=== PATIENT | male | born 1975 | race Caucasian/White ===

== ENCOUNTER 2023-03-15 19:00 | Inpatient (IN) | payer BC, SELFPAY ==
--- NOTE | ~2023-03-15 | US_ITS ---
EXAMINATION: US venous doppler UE DATE: 03/16/2023 17:49 INDICATION: Left upper limb pain. TECHNIQUE: Grayscale ultrasound images without and with compression and Doppler ultrasound images of the left upper extremity veins were obtained. COMPARISON: ultrasound 03/16/23 FINDINGS: The visualized portions of the left internal jugular vein, subclavian vein, axillary vein, brachial v eins, basilic vein, cephalic vein, and radial vein are patent. There is thrombus in left ulnar vein. IMPRESSION: 1. Deep vein thrombosis involving left ulnar vein. Reviewed, dictated and finalized at location E.
--- NOTE | ~2023-03-15 | MR_ITS ---
EXAMINATION: MR elbow LT wo/w con DATE: 03/21/2023 12:42 INDICATION: Deep space infection of the left upper extremity. TECHNIQUE: Magnetic resonance imaging (MRI) of the left upper extremity centered at the left elbow to include the distal two thirds of the upper arm and proximal two thirds of the forearm was performed without and with 14 mL Multihance intravenous contrast. Sequences included axial, sagittal and foreman l T1-weighted FSE and fluid sensitive FSE STIR, axial T1-weighted FS FSE and post contrast axial, sag ittal and coronal T1-weighted FS FSE were also obtained. COMPARISON: CT dated 03/19/2023 FINDINGS: There is diffuse subcutaneous edema throughout the visualized forearm, rule out the elbow and along t he medial aspect of the more proximal upper arm. Additional prominent deeper muscular edema and non m asslike enhancement in the deeper fat centered about the brachial neurovascular bundle and in the und erlying brachialis muscle belly, the latter consistent with myositis. There is additional mild likely reactive edema without abnormal enhancement in the musculature of the proximal aspect of the flexor compartment. No discrete abscess. There is no evident nonenhancing myonecrosis. Elbow joint spaces ap pear normal with no joint effusion. Bone marrow signal is normal throughout. No osteomyelitis or othe r acute osseous abnormality. IMPRESSION: 1. Prominent diffuse centimeters subcutaneous edema and non masslike enhancement in the left upper ar m and forearm cyst with cellulitis as well as in the deeper tissues centered along the brachial neuro vascular bundle of the distal upper arm and antecubital fossa. No abscess. 2. Edema and non masslike enhancement in the underlying brachialis muscle belly consistent with myosi tis. With no evident nonenhancing myonecrosis. 3. No evident low signal intensity foci of soft tissue gas or evident soft tissue gas on the more sen sitive prior CT to suggest necrotizing fasciitis however this is a clinical diagnosis and can not be excluded based solely on imaging. Reviewed, dictated and finalized at location A. IMPRESSION: 1. Prominent diffuse centimeters subcutaneous edema and non masslike enhancemen t in the left upper arm and forearm cyst with cellulitis as well as in the deep er tissues centered along the brachial neurovascular bundle of the distal upper arm and antecubital fossa. No abscess. 2. Edema and non masslike enhancement in the underlying brachialis muscle belly consistent with myositis. With no evident nonenhancing myonecrosis. 3. No evident low signal intensity foci of soft tissue gas or evident soft tiss ue gas on the more sensitive prior CT to suggest necrotizing fasciitis however this is a clinical diagnosis and can not be excluded based solely on imaging.
--- NOTE | ~2023-03-15 | CT_ITS ---
CT OF left upper extremity EXAMINATION: CT UE LT wo con DATE: 03/19/2023 09:56 INDICATION: Rule out compartment syndrome, abscess. TECHNIQUE: Computed tomography (CT) of the was performed without intravenous contrast. Automated expo sure control and iterative reconstruction technique were employed. The dose-length product was 1074.4 2 mGy-cm. COMPARISON: None FINDINGS: Intact osseous structures. No fracture or erosion. Prominent lymph nodes in the antecubital fossa and axilla. Extensive subcutaneous edema involving the entire upper extremity. Edematous/inflammatory ch brian appears to extend into deep fascial layers. Fluid/inflammatory change surrounding the neurovascu lar bundle, best seen at the antecubital fossa, where there is also likely venous dilation that would be typical of venous thrombosis. IMPRESSION: No definite abscess noting that this determination is limited by CT, and even more so without contras t. Consider MRI without and with contrast. Compartment syndrome cannot be reliably assessed or excluded by imaging. Possible cellulitis, thrombophlebitis and deep space infection. Consider necrotizing fasciitis in the differential given deep space involvement. Reviewed, dictated and finalized at location K. IMPRESSION: No definite abscess noting that this determination is limited by CT, and even m ore so without contrast. Consider MRI without and with contrast. Compartment syndrome cannot be reliably assessed or excluded by imaging. Possible cellulitis, thrombophlebitis and deep space infection. Consider necrot izing fasciitis in the differential given deep space involvement.
--- NOTE | ~2023-03-15 | XR_ITS ---
EXAMINATION: XR chest 2V DATE: 03/15/2023 20:15 INDICATION: Chest pain. TECHNIQUE: Frontal and lateral views of the chest were obtained on 3 radiographs. COMPARISON: Chest 2 views 08/10/2013 FINDINGS: A calcified right lung nodule is consistent with old granulomatous disease. There is mild a telectasis in right lower lung zone. No pleural effusion or pneumothorax. Cardiomegaly is noted. IMPRESSION: 1. Mild atelectasis in right lower lung zone. 2. Cardiomegaly. Reviewed, dictated and finalized at location E.
--- NOTE | ~2023-03-15 | US_ITS ---
EXAMINATION: US soft tissue UE LT DATE: 03/16/2023 15:04 INDICATION: Soft tissue swelling, pain and erythema at the left antecubital fossa with drainage at th e site of a prior IV catheter. TECHNIQUE: Multiple grayscale and Doppler ultrasound images of the region of concern at the left ante cubital fossa and more proximal upper arm were obtained. COMPARISON: None FINDINGS: There is cellulitis with skin thickening and subcutaneous edema at the erythematous region of concern . In the region of cellulitis is a linear hypoechoic draining sinus tract and/or catheter tract exten ding from the skin surface deep to an ill-defined approximately 3 x 3 x 2.5 cm heterogeneously hypoec hoic region of likely edema and potentially phlegmonous change at the antecubital fossa. There is pro minent hyperemia on color Doppler within the hypoechoic region. No organized-appearing drainable absc ess identified. The region of inflammation surrounds the distal left brachial artery and veins. The b rachial artery remains patent with pulsatile vascular flow evident on color Doppler. This could be as sociated brachial veins appear filled with hypoechoic likely thrombus with no discernible internal fl ow on color Doppler. There are several mildly prominent likely reactive lymph nodes in the more proxi mal upper arm along the brachial artery. IMPRESSION: 1. Localized thrombophlebitis with thrombosis of the distal brachial veins at the left antecubital fo ssa deep to a likely draining sinus tract and/or catheters tract. There is a small surrounding region of likely phlegmonous change and more superficial cellulitis but no drainable abscess at this locati on. Reviewed, dictated and finalized at location A. IMPRESSION: 1. Localized thrombophlebitis with thrombosis of the distal brachial veins at t he left antecubital fossa deep to a likely draining sinus tract and/or catheter s tract. There is a small surrounding region of likely phlegmonous change and m ore superficial cellulitis but no drainable abscess at this location.
--- NOTE | ~2023-03-15 | MR_ITS ---
MRI of the thoracic spine Clinical History: Epidural abscess Technique: Axial T2-weighted and gradient images, and sagittal T1-weighted, T2-weighted, and STIR arlene ges were acquired. Following intravenous administration of 14 cc MultiHance gadolinium, T1-weighted f at-sat imaging was performed in the axial and sagittal planes. Findings: There is no fracture or subluxation of the thoracic spine. Vertebral bodies maintain normal height and alignment. No bone marrow signal abnormality seen. No abnormal disc signal seen. No disc bulge or herniation seen at any thoracic level. There is mild canal stenosis from C3 through C9, largely related to mildly prominent posterior epidural fat. No franky cord compression evident. No other epidural mass or collection identified. No abnormal signal seen in the spinal cord. No abnormal postcontrast enhancement identified. Paravert ebral soft tissues are otherwise unremarkable. Impression: No epidural abscess. Mild canal stenosis from C3 through C9, largely related to prominent posterior epidural fat. No franky cord compression. No disc bulge or herniation. Reviewed, dictated and finalized at [facility]. Impression: No epidural abscess. Mild canal stenosis from C3 through C9, largely related to prominent posterior epidural fat. No franky cord compression. No disc bulge or herniation.
--- NOTE | ~2023-03-15 | CT_ITS ---
EXAMINATION: CTA chest PE protocol DATE: 03/15/2023 21:37 INDICATION: Chest pain. TECHNIQUE: Computed tomography angiography (CTA) of the chest was performed with 100 mL Omnipaque-350 intravenous contrast timed to evaluate the pulmonary arteries. Coronal maximum intensity projection 3D-reconstructions were created by the technologist. Automated exposure control and iterative reconst ruction technique were employed. The dose-length product was 252.62 mGy-cm. COMPARISON: Chest CT 05/28/2012, CT abdomen and pelvis 08/10/2013 FINDINGS: There is a bleb at right lung apex. There is mild scarring in right upper lobe. There is mi ld atelectasis bilaterally. A calcified right lung nodule and calcified right hilar lymph nodes are c onsistent with old granulomatous disease. No pleural effusion. Cardiomegaly is noted. No pericardial effusion. There is no pulmonary embolus. Calcifications in the liver and spleen are consistent with o ld granulomatous disease. The bones are unremarkable. IMPRESSION: 1. No pulmonary embolus. 2. Cardiomegaly. Reviewed, dictated and finalized at location E.
[2023-03-15 18:59] VITALS: BP 147/88; PULSE 113; RESP 14; TEMP 37.6; O2SAT 97
[2023-03-15 19:26] LABS: Basophils Percent Auto 0.4 % (0.2-1.2); Eosinophils Percent Auto 0.3 % (0-4.4); Hematocrit 41.2 % (42.0-52.0); Hemoglobin 13.8 g/dL (14.0-18.0); Immature Granulocyte Absolute 0.06 K/mm3 (0.00-0.031); Immature Granulocyte Percent A 0.8 % (0-0.5); Mean Corpuscular HGB Conc 33.5 g/dl (32-36); Mean Corpuscular Hemoglobin 27.1 pg (26-34); Mean Corpuscular Volume 80.9 fl (80-100); Mean Platelet Volume 9.7 fl (7.4-10.4); Monocytes Percent Auto 12.7 % (2.6-8.5); Neutrophils Percent Auto 76.8 % (45.5-73.1); Platelet Count Result 255 k/mm3 (150-375); Red Blood Count 5.09 M/mm3 (4.6-6.20); Red Cell Distribution Width 14.3 % (11.5-14.5); White Blood Count 7.8 K/mm3 (4.5-10.0)
[2023-03-15 19:29] LABS: Glucose Point of Care > 500 mg/dl (65-105)
--- NOTE | 2023-03-15 19:41 | ECG_ITS ---
Measurements Intervals [place] Rate: 110 P: 77 MA: 174 QRS: -66 QRSD: 111 T: 91 QT: 329 QTc: 446 Interpretive Statements SINUS TACHYCARDIA LEFT ATRIAL ENLARGEMENT [-0.15mV P WAVE IN V1/V2] LEFT ANTERIOR FASCICULAR BLOCK [QRS AXIS <= -45, QR IN I, RS IN II] LEFT VENTRICULAR HYPERTROPHY AND ST-T CHANGE [VOLTAGE CRITERIA PLUS ST/T ABNORMALITY] ABNORMAL ECG NO PREVIOUS ECG AVAILABLE FOR COMPARISON Electronically Signed On 03-16-2023 8:56:07 CDT by Juan José Duenas M.D.
--- NOTE | 2023-03-15 19:42 | ED.GENADULT ---
HPI - General Adult General Chief complaint: Unspecified Stated complaint: AMS, ARM INFECTION Time Seen by Provider: 03/15/23 19:29 History of Present Illness HPI narrative: Patient is complaining of an infection in his left arm that is causing pain there as well as throughout his entire body. It is reported that he was seen at [place] 1 week ago for DKA and left AMA. Patient states this pain has been going on for 2 days. He noticed thick purulent discharge from the wound in the antecubital fossa of his left arm earlier. 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 Says he felt warm earlier today but no antipyretics yet. Self-reports heart failure with EF 25% (previously worse and temporarily had worn LifeVest but regained some function). He is currently having some chest pain. He has also had a non productive cough. Denies IVDU. States he has a history of DVT for which he takes Elliquis but that his last dose was taken when he was at the hospital 2 days ago. 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 Patient denies allergies to me. Related Data Home Medications Medication Instructions Recorded Confirmed atorvastatin 10 mg tablet 10 mg PO DAILY 03/16/23 03/16/23 bupropion HCl 150 mg tablet,12 hr 150 mg PO DAILY 03/16/23 03/16/23 sustained-release carvedilol 3.125 mg tablet 3.125 mg PO BID 03/16/23 03/16/23 gabapentin 300 mg capsule 300 mg PO TID PRN nerve pain 03/16/23 03/16/23 hydroxyzine HCl 25 mg PO TID PRN Anxiety 03/16/23 03/16/23 insulin glargine 100 unit/mL (3 40 unit subcut DAILY 03/16/23 03/16/23 mL) subcutaneous pen (Lantus Solostar U-100 Insulin) insulin lispro 100 unit/mL 10 unit subcut TIDWM 03/16/23 03/16/23 subcutaneous solution (Humalog U-100 Insulin) losartan 25 mg tablet 25 mg PO DAILY 03/16/23 03/16/23 naltrexone 50 mg tablet 50 mg PO DAILY 03/16/23 03/16/23 pantoprazole 40 mg tablet,delayed 40 mg PO DAILY 03/16/23 03/16/23 release trazodone 50 mg tablet 50 mg PO HS 03/16/23 03/16/23 Allergies Allergy/AdvReac Type Severity Reaction Status Date / Time codeine Allergy Intermediate Unknown Verified 03/16/23 03:17 gabapentin Allergy Unknown Verified 03/16/23 03:17 [facility] Past Medical History Medical History (Updated 03/18/23 @ 00:51 by Carlita Apple MD) Amphetamine abuse CVA (cerebral vascular accident) (~2021) Diabetic neuropathy Essential hypertension History of cocaine use Hypothyroidism Migraines MRSA cellulitis Nonadherence to medical treatment Systolic heart failure Thrombus in heart chamber Uncontrolled type 1 diabetes mellitus with hyperglycemia Surgical History Surgical History (Updated 03/16/23 @ 03:37 by Ele Saenz DO) History of facial surgery Reconstructive surgery to the face and jaw Status post open reduction with internal fixation of fracture Right 5th toe Family History Family History Mother Diabetes mellitus Hypertension COPD (chronic obstructive pulmonary disease) Father Kidney stones Hypertension Sibling Diabetes mellitus Social History Social History (Updated 03/16/23 @ 07:50 by Ele Saenz DO) Social History: He is and has a believe 2 children. Patient has a history of both methamphetamine and cocaine abuse in the past. He also uses marijuana. He reports that he has been clean of illicit substance use since October of 2022 but his methamphetamine screen was positive 03/16/2023. He is living with his aunt. He quit smoking November of 2022. He denies any significant alcohol use. He reports that he previously was incarcerated for 24 years. He thinks that if he had never been incarcerated that he would probably already be from his drug addiction Code status: Full code Surrogate decision maker: Riri (spouse) Smoking packs per day: 1 Smok
[2023-03-15 19:44] LABS: Alanine Aminotransferase 24 U/L (6-50); Albumin Level 3.6 g/dL (3.5-5.1); Alkaline Phosphatase 114 U/L (38-126); Anion Gap 10 mmol/L (8-16); Aspartate Amino Transferase 24 U/L (17-59); Bilirubin,Total 0.8 mg/dL (0.2-1.3); Blood Urea Nitrogen 27 mg/dL (9-20); Calcium 8.5 mg/dL (8.4-10.2); Carbon Dioxide 24 mmol/L (22-30); Chloride 89 mmol/L (98-107); Estimated CRCL calculation 58 ml/min; Estimated Glomerular Filt Rate 55; Glucose 565 mg/dL (65-110); Magnesium 1.8 mg/dL (1.6-2.3); Phosphorus 2.4 mg/dL (2.5-4.5); Potassium 4.8 mmol/L (3.4-5.0); Sodium 123 mmol/L (137-145)
[2023-03-15 19:46] VITALS: PULSE 110
[2023-03-15 19:47] LABS: Beta-Hydroxybutyrate/Acetoacetate 0.11 mmol/L (0.02-0.27)
[2023-03-15] MEDS: MORPHINE SULFATE (*CRX) 4 MG/ML INJ IV PUSH (19:48)
[2023-03-15] MEDS: ACETAMINOPHEN 500 MG TABLET 1000 MG PO (19:48)
[2023-03-15 20:02] LABS: D Dimer 1.01 ug/mL (<0.48)
[2023-03-15 20:04] LABS: Appearance Urine Clear (Clear); Bacteria Urine None Seen /hpf; Bilirubin Urine Negative (Negative); Blood Urine 2+ (Negative); Color Urine Yellow (Yellow); Glucose Urine UA 3+ mg/dL (Negative); Ketones Urine Negative (Negative); Leukocyte Esterase Ur Negative LEU/UL (Negative); Need Manual Microscopic Reviewed; Nitrate Urine Negative (Negative); Non Pathogenic Casts 0-2; Protein Urine 3+ mg/dL (Negative); Specific Grav Ur 1.032 (1.001-1.035); Squamous Epithelial Cell Urine None seen /hpf (Few); WBC Urine 0-5 /hpf; pH Urine 5.5 (5.0-9.0)
[2023-03-15 20:06] LABS: Add Urine Microscopic? YES
[2023-03-15 20:14] LABS: Troponin I 0.105 ng/mL (0.000-0.034)
[2023-03-15] MEDS: SODIUM CHLORIDE 0.9% IV 500 ML 999 ML IV CONT ×2 (20:17→21:49)
[2023-03-15] MEDS: POTASSIUM PHOS/SODIUM PHOS 250 MG TABLET PO (20:18)
[2023-03-15 21:22] VITALS: BP 113/61; PULSE 98; RESP 22; O2SAT 98
[2023-03-15] MEDS: INSULIN ASPART (*BKC) 100 UNITS/ML 10 UNITS SUB-Q (22:18)
[2023-03-15 22:25] LABS: Glucose Point of Care 364 mg/dl (65-105)
[2023-03-15 22:35] LABS: Troponin I 0.108 ng/mL (0.000-0.034)
--- NOTE | 2023-03-15 23:12 | ECG_ITS ---
Measurements Intervals [place] Rate: 98 P: 65 MO: 172 QRS: -59 QRSD: 112 T: 76 QT: 341 QTc: 437 Interpretive Statements SINUS RHYTHM LEFT ATRIAL ENLARGEMENT [-0.15mV P WAVE IN V1/V2] LEFT ANTERIOR FASCICULAR BLOCK [QRS AXIS <= -45, QR IN I, RS IN II] POSSIBLE LEFT VENTRICULAR HYPERTROPHY [VOLTAGE CRITERIA PLUS LAE OR QRS WIDENING] NONSPECIFIC T-WAVE ABNORMALITY ABNORMAL ECG COMPARED TO ECG 03/15/2023 20:03:53 HEART RATE HAS DECREASED Electronically Signed On 03-16-2023 18:25:04 CDT by Juan José Duenas M.D.
[2023-03-15 23:45] VITALS: BP 148/89; PULSE 101; RESP 14; O2SAT 99
[2023-03-16] VITALS (13 sets, daily range): BP systolic 113–147; BP diastolic 64–92; PULSE 85–120; RESP 15–21; TEMP 36.4–37.8; O2SAT 94–99; BMI 24.5
--- NOTE | 2023-03-16 | ECHO_ITS ---
Patient Info Name: Eleuterio Galvan Age: 47 years : 1975 Gender: Male Ht: 68 in Wt: 160 lbs BSA: 1.87 m2 HR: 101 bpm BP: 135 / 76 mmHg Heart Rhythm: Sinus Rhythm, Tachycardia Technical Quality: Fair Exam Date: 03/16/2023 10:44 AM Exam Location: [facility] Pulmonary Exam Room: 317 Patient Status: Inpatient Admit Date: 03/16/2023 Staff Ordering Physician: Glenis Borges APRN Systems Specialist: Pricila Del Cid RDCS Attending Provider: Ele Saenz DO Referring Physician: Katerina CROWDER; Exam Type: CA echo doppler color flow Study Info Indications - HX/O CM IVDU THROMBUS Complete two-dimensional, color flow and Doppler transthoracic echocardiogram is performed. Summary 1. Complete two-dimensional, color flow and Doppler transthoracic echocardiogram is performed. 2. Left ventricular chamber dimension is moderately enlarged. False tendon noted in LV. 3. Left ventricular systolic function is severely reduced, estimated at 25-30%. Heavy trabeculation in the left ventricle. Consider left ventricular noncompaction. Consider cardiac MRI if clinically indicated. 4. There is mildly increased left ventricular wall thickness. 5. The left ventricular diastolic function is normal. 6. Global longitudinal strain is severely elevated at -7 %. 7. The aortic valve is quadricuspid with mild sclerosis. 8. There is mild aortic valve regurgitation. 9. There is no aortic valve stenosis. Left Ventricle Left ventricular chamber dimension is moderately enlarged. False tendon noted in LV. Left ventricular systolic function is severely reduced, estimated at 25-30%. Heavy trabeculation in the left ventricle. Consider left ventricular noncompaction. Consider cardiac MRI if clinically indicated. There is mildly increased left ventricular wall thickness. The left ventricular diastolic function is normal. Global longitudinal strain is severely elevated at -7 %. Right Ventricle Right ventricular chamber dimension is normal. Right ventricular systolic function is normal. Prominent moderator band. Left Atria Left atrial chamber dimension is mildly enlarged. Right Atria Right atrial chamber dimension is normal. Aortic Valve There is no aortic valve stenosis. There is mild aortic valve regurgitation. The aortic valve is quadricuspid with mild sclerosis. Pulmonic Valve The pulmonic valve is normal. There is mild pulmonic regurgitation. Mitral Valve The mitral valve has thickened leaflets. There is no mitral valve regurgitation. Tricuspid Valve The tricuspid valve leaflets are normal. There is trace tricuspid valve regurgitation. No pulmonary hypertension, estimated pulmonary arterial systolic pressure is 30 mmHg. Pericardium/Pleural The pericardium appears normal. There is trivial pericardial effusion. Inferior Vena Cava Normal inferior vena cava with <50% collapse upon inspiration consistent with elevated right atrial pressure, 10 mmHg. Aorta The aortic root size at the sinus of Valsalva is normal. Left Ventricular Outflow Tract Name Value Normal LVOT 2D LVOT Diameter 2.0 cm LVOT Doppler LVOT Peak Velocity 130 cm/s LVOT Peak Gradient 7 mmHg
[2023-03-16 01:10] LABS: Amphetamine Screen Urine Positive (Negative); Barbiturate Screen Urine Negative (Negative); Benzodiazepines Screen Urine Positive (Negative); Cannabinoid Screen Urine Negative (Negative); Cocaine Screen Urine Negative (Negative); Methadone Screen Urine Negative (Negative); Opiate Screen Urine Negative (Negative); Phencyclidine Screen Urine Negative (Negative)
--- NOTE | 2023-03-16 01:23 | PC.NURSE ---
Patient is in a great deal of pain crying and moaning in bed. Notified Dr. Apple who verbally ordered 4mg Morphine IVP.
[2023-03-16] MEDS: MORPHINE SULFATE (*CRX) 4 MG/ML INJ IV PUSH (01:27)
[2023-03-16] MEDS: SODIUM CHLORIDE 0.9% IV 1,000 ML 70 ML IV CONT (01:28)
--- NOTE | 2023-03-16 02:44 | ADMGEN ---
This patient, Eleuterio Galvan, was admitted to [facility] Surg Room 317-02. Patient/family oriented to hospital policies and general routines including ID bracelet, bed and alarms, visiting hours, pain management, procedures, bathroom and other care routines, personal items, smoking policy, room service/diet, and visiting hours. Information on how to activate the Rapid Response Team has been discussed. Patient/Family are encouraged to report perceived risks to care and to ask questions if they do not understand what they are told or what they should do.
--- NOTE | 2023-03-16 03:25 | PM.IMHP ---
H&P: HPI History of Present Illness Date/Time: 03/16/23 03:25 Chief Complaint: Arm infection Narrative: 47-year-old male with a past medical history of systolic congestive heart failure/severe cardiomyopathy, uncontrolled diabetes mellitus, anxiety, chronic pain and amphetamine abuse who presented to the ER from home with complaints of an arm infection. The patient reports that he was just diet [facility] 2 days ago for DKA. He decided to leave the hospital against medical advice when he started developing an infection in his left forearm. He newly was getting an infection at the IV site and stated that he did not want to stay there and let the infection go to his eye like it did the last time. He states that he has blindness left eye due to the infection going to his left eye last year. Although his reasoning does not make since he chose to leave the hospital. He returned to our hospital today because he was hurting all over. He had been having subjective fevers and chills. When he arrived to the ER he had a low-grade temperature and when he arrived to the medical floor temperature was 100.1?. He denies any nausea or vomiting he reports a good appetite. He does have difficulty with diabetic gastroparesis. He reports that he has a brittle diabetic and that is glucoses jump up and down. He did take his long-acting insulin but despite taking his long-acting insulin is still having high glucoses. He did not take his short-acting insulin because he was not eating due to his generalized pain. He reports that he has been having pain up into his arm and into his left shoulder. He reports that the pain is severe. He does not want to move his arm at all. He has had some swelling of the arm as well. He reports he had a prior MRSA infection in the right arm from a prior IV site last year. The patient does admit that he does have a history of drug abuse. He adamantly denies intentionally using methamphetamines recently. He admits he did smoke a joint with a friend couple of days ago and he thinks that that may have been laced with methamphetamines. He states that he has been on naltrexone and Wellbutrin for 3 months and is been trying to stay clean besides smoking weed. He is currently living with his aunt. He has a in the process of applying for disability because he has cardiomyopathy from his prior drug use. He reports that his ejection fraction victor is been as low as 8% last year in July he did get is ejection fraction up to 40% 1 time but then again became noncompliant with his care. He reports for the last 3 months he has been taking his medications as directed in his EF is improved up to 20-25%. 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 Which was treated at another hospital several months ago. He has not had any recent syncopal episodes. He denies any shortness of breath. He quit smoking tobacco 3 months ago. Review of Systems Review of Systems: 12 systems were reviewed with pertinent positives and negatives per HPI. Except as documented in the HPI, all other systems were reviewed and are negative. [facility] Past Medical History Medical History (Updated 03/16/23 @ 08:08 by Ele Saenz DO) Amphetamine abuse CVA (cerebral vascular accident) (~2021) Diabetic neuropathy Essential hypertension History of cocaine use Hypothyroidism Migraines MRSA cellulitis Nonadherence to medical treatment Systolic heart failure Thrombus in heart chamber Uncontrolled type 1 diabetes mellitus with hyperglycemia Surgical History Surgical History (Updated 03/16/23 @ 03:37 by Ele Saenz DO) History of facial surgery Reconstructive surgery to the face and jaw Status post open reduction with internal fixation of fracture Right 5th toe Family History Family History Mother
--- NOTE | 2023-03-16 03:38 | PC.NURSE ---
This RN completed pt admission. Admission questions answered based on patient response. Pt stated he hasn't used any substances since 10/2022, tox report was positive.
[2023-03-16 03:56] LABS: Estimated CRCL calculation 73 ml/min; Estimated Glomerular Filt Rate > 60
[2023-03-16] MEDS: HYDROcodone/acetaminophen (*CRX) 5-325 MG TABLET 1 TAB PO ×3 (05:20→17:58)
[2023-03-16 05:58] LABS: Basophils Absolute Auto 0.1 K/mm3 (0.0-0.1); Basophils Percent Auto 0.7 % (0.2-1.2); Eosinophils Absolute Auto 0.1 K/mm3 (0-0.3); Eosinophils Percent Auto 0.8 % (0-4.4); Hemoglobin 14.8 g/dL (14.0-18.0); Immature Granulocyte Absolute 0.04 K/mm3 (0.00-0.031); Immature Granulocyte Percent A 0.4 % (0-0.5); Lymphocytes Absolute Auto 1.12 K/mm3 (0.9-3.2); Lymphocytes Percent Auto 12.2 % (18.3-44.2); Mean Corpuscular HGB Conc 32.2 g/dl (32-36); Mean Corpuscular Hemoglobin 26.8 pg (26-34); Mean Corpuscular Volume 83.2 fl (80-100); Monocytes Absolute Auto 1.1 K/mm3 (0.1-0.6); Monocytes Percent Auto 12.3 % (2.6-8.5); Neutrophils Absolute Auto 6.8 K/mm3 (1.3-6.7); Neutrophils Percent Auto 73.6 % (45.5-73.1); Platelet Count Result 286 k/mm3 (150-375); Red Blood Count 5.53 M/mm3 (4.6-6.20); Red Cell Distribution Width 14.5 % (11.5-14.5); White Blood Count 9.2 K/mm3 (4.5-10.0)
[2023-03-16 06:06] LABS: Anion Gap 8 mmol/L (8-16); Blood Urea Nitrogen 23 mg/dL (9-20); Calcium 8.6 mg/dL (8.4-10.2); Carbon Dioxide 26 mmol/L (22-30); Chloride 96 mmol/L (98-107); Estimated CRCL calculation 73 ml/min; Estimated Glomerular Filt Rate > 60; Glucose 73 mg/dL (65-110); Potassium 3.5 mmol/L (3.4-5.0); Sodium 130 mmol/L (137-145)
[2023-03-16 06:24] LABS: Troponin I 0.106 ng/mL (0.000-0.034)
[2023-03-16 06:35] LABS: Lactic Acid Reflex 1.9 mmol/L (0.7-2.0)
[2023-03-16 07:52] LABS: Glucose Point of Care 71 mg/dl (65-105)
--- NOTE | 2023-03-16 08:18 | PM.IMPN ---
Progress Note: A&P Assessment and Plan (1) Sepsis: Qualifiers: Sepsis acute organ dysfunction status: without acute organ dysfunction Sepsis type: sepsis due to unspecified organism Qualified Code(s): A41.9 - Sepsis, unspecified organism Code(s): A41.9 - Sepsis, unspecified organism Status: Acute Assessment and Plan: Tachycardia and tachypnea in setting of cellulitis broad spectrum therapy with vanco given history of MRSA MRSA nasal swab pending Blood cultures pending Currently not draining so unable to collect culture left upper extremity ultrasound ordered r/o abscess development (2) Cellulitis: Qualifiers: Laterality: left Site of cellulitis: extremity Site of cellulitis of extremity: upper extremity Qualified Code(s): L03.114 - Cellulitis of left upper limb Code(s): L03.90 - Cellulitis, unspecified Status: Acute Assessment and Plan: see above (3) Elevated troponin: Code(s): R79.89 - Other specified abnormal findings of blood chemistry Status: Acute Assessment and Plan: Troponin on admission was 0.108--->0.106 this morning suspect related to chronic cardiomyopathy on tele EKG with left atrial enlargement as well as LV hypertrophy and ST-T change 03/16 did complain of chest pain which he says is more in his mid-left back. EKG unchanged. Troponin continues to decline. (4) Systolic heart failure: Qualifiers: Heart failure chronicity: chronic Qualified Code(s): I50.22 - Chronic systolic (congestive) heart failure Code(s): I50.20 - Unspecified systolic (congestive) heart failure Status: Acute Assessment and Plan: Drug induced cardiomyopathy resuming home coreg and losartan I&Os and daily weights last echo? 20-25% EF per patient ECHO completed here 03/16 (5) Uncontrolled type 1 diabetes mellitus with hyperglycemia: Code(s): E10.65 - Type 1 diabetes mellitus with hyperglycemia Status: Acute Assessment and Plan: Typically on 10 units lispro with meals and Lantus 40 units daily was only taking lantus at home due to low oral intake Blood glucose was > 500 on arrival Received 10 units of novolog in the ED at 2206 Blood glucose 71 this morning before breakfast. Hold 10 units of novolog. Continue with high dose SSI and hypoglycemia protocol DM diet (6) Nonadherence to medical treatment: Code(s): Z91.199 - Patient's noncompliance with other medical treatment and regimen due to unspecified reason Status: Acute Assessment and Plan: History of AMA most recently at [place] this last week (7) Thrombus in heart chamber: Code(s): I51.3 - Intracardiac thrombosis, not elsewhere classified Status: Acute Assessment and Plan: Patient reports thrombus and is on Eliquis restarted Eliquis 5 mg PO BID (8) Amphetamine abuse: Code(s): F15.10 - Other stimulant abuse, uncomplicated Status: Acute Assessment and Plan: Patient states he has taken Wellbutrin and naltrexone to help him quit using methamphetamines.? Patient is receiving [place] currently.? Naltrexone is on hold.? The importance of adherence to his medical therapy and long-term consequences was discussed with the patient in detail. Plan Feeding:diabetic diet Analgesia:norco with morphine for severe pain Thromboembolic prophylaxis: SCDs and eliquis Ulcer prophylaxis: protonix Glycemic control: SSI with Lantus 40 units daily and hypoglycemia protocol Bowel regimen: na Lines: PIV Antibiotics:IV vanco Disposition: Home Await results from ultrasound and thoracic spine MRI Subjective Date/time seen: 03/16/23 08:18 Interval history: HPI obtained from chart, 47-year-old male with a past medical history of systolic congestive heart failure/severe cardiomyopathy, uncontrolled diabetes mellitus, anxiety, chronic pain and amphetamine abus
[2023-03-16] MEDS: buPROPion HCL SR (12 HR) 150 MG TAB PO (09:03)
[2023-03-16] MEDS: ATORVASTATIN 10 MG TABLET PO (09:03)
[2023-03-16] MEDS: LOSARTAN POTASSIUM 25 MG TABLET PO (09:03)
[2023-03-16] MEDS: APIXABAN 5 MG TABLET PO ×2 (09:03→20:44)
[2023-03-16] MEDS: NYSTATIN 100,000 UNITS/ML SUSP 5 ML ORAL.SUSP PO ×3 (09:03→20:45)
[2023-03-16] MEDS: carvediloL 3.125 MG TABLET PO ×2 (09:03→20:44)
[2023-03-16] MEDS: PANTOPRAZOLE 40 MG TABLET PO (09:03)
[2023-03-16] MEDS: INSULIN GLARGINE (*BKC) 100 UNITS/ML 40 UNITS SUB-Q (09:08)
--- NOTE | 2023-03-16 09:14 | ECG_ITS ---
Measurements Intervals [place] Rate: 108 P: 54 NV: 132 QRS: -53 QRSD: 109 T: 80 QT: 331 QTc: 445 Interpretive Statements SINUS TACHYCARDIA LEFT ATRIAL ENLARGEMENT [-0.15mV P WAVE IN V1/V2] LEFT ANTERIOR FASCICULAR BLOCK [QRS AXIS <= -45, QR IN I, RS IN II] NONSPECIFIC T-WAVE ABNORMALITY ABNORMAL ECG COMPARED TO ECG 03/15/2023 23:28:49 SINUS TACHYCARDIA NOW PRESENT Electronically Signed On 03-16-2023 18:28:10 CDT by Juan José Duenas M.D.
[2023-03-16 10:11] LABS: Troponin I 0.093 ng/mL (0.000-0.034)
[2023-03-16 11:25] LABS: Glucose Point of Care 285 mg/dl (65-105)
[2023-03-16] MEDS: INSULIN ASPART (*BKC) 100 UNITS/ML SUB-Q ×3 (11:33→20:52)
[2023-03-16] MEDS: INSULIN ASPART (*BKC) 100 UNITS/ML 10 UNITS SUB-Q ×2 (11:33→17:57)
[2023-03-16 17:13] LABS: Glucose Point of Care 208 mg/dl (65-105)
[2023-03-16] MEDS: traZODone HCL 50 MG TABLET PO (20:44)
[2023-03-16 21:16] LABS: Glucose Point of Care 236 mg/dl (65-105)
[2023-03-17] VITALS (10 sets, daily range): BP systolic 104–125; BP diastolic 66–78; PULSE 64–102; RESP 15–22; TEMP 36.2–37.4; O2SAT 96–99
[2023-03-17] MEDS: HYDROcodone/acetaminophen (*CRX) 5-325 MG TABLET 1 TAB PO ×3 (00:21→12:27)
[2023-03-17 06:27] LABS: Basophils Percent Auto 0.4 % (0.2-1.2); Eosinophils Absolute Auto 0.2 K/mm3 (0-0.3); Eosinophils Percent Auto 2.8 % (0-4.4); Hemoglobin 11.9 g/dL (14.0-18.0); Immature Granulocyte Absolute 0.02 K/mm3 (0.00-0.031); Immature Granulocyte Percent A 0.2 % (0-0.5); Lymphocytes Absolute Auto 1.36 K/mm3 (0.9-3.2); Lymphocytes Percent Auto 16.4 % (18.3-44.2); Mean Corpuscular HGB Conc 32.2 g/dl (32-36); Mean Corpuscular Hemoglobin 26.5 pg (26-34); Mean Corpuscular Volume 82.4 fl (80-100); Mean Platelet Volume 9.7 fl (7.4-10.4); Monocytes Absolute Auto 1.1 K/mm3 (0.1-0.6); Neutrophils Absolute Auto 5.6 K/mm3 (1.3-6.7); Neutrophils Percent Auto 67.2 % (45.5-73.1); Platelet Count Result 249 k/mm3 (150-375); Red Blood Count 4.49 M/mm3 (4.6-6.20); Red Cell Distribution Width 14.3 % (11.5-14.5); White Blood Count 8.3 K/mm3 (4.5-10.0)
[2023-03-17 06:39] LABS: INR 1.1; Prothrombin Time 14.9 Seconds (11.1-14.7)
[2023-03-17 06:40] LABS: Alanine Aminotransferase 15 U/L (6-50); Albumin Level 3.2 g/dL (3.5-5.1); Alkaline Phosphatase 86 U/L (38-126); Anion Gap 5 mmol/L (8-16); Aspartate Amino Transferase 20 U/L (17-59); Bilirubin,Total 0.8 mg/dL (0.2-1.3); Blood Urea Nitrogen 20 mg/dL (9-20); Calcium 8.2 mg/dL (8.4-10.2); Carbon Dioxide 27 mmol/L (22-30); Chloride 97 mmol/L (98-107); Estimated CRCL calculation 73 ml/min; Estimated Glomerular Filt Rate > 60; Glucose 63 mg/dL (65-110); Magnesium 2.1 mg/dL (1.6-2.3); Potassium 3.6 mmol/L (3.4-5.0); Sodium 129 mmol/L (137-145)
[2023-03-17 07:10] LABS: Partial Thromboplastin Time 42.3 SECONDS (22.3-36.8)
--- NOTE | 2023-03-17 07:42 | PC.NURSE ---
pt off floor getting MRI
--- NOTE | 2023-03-17 08:07 | PM.IMPN ---
Progress Note: A&P Assessment and Plan (1) Sepsis: Qualifiers: Sepsis acute organ dysfunction status: without acute organ dysfunction Sepsis type: sepsis due to unspecified organism Qualified Code(s): A41.9 - Sepsis, unspecified organism Code(s): A41.9 - Sepsis, unspecified organism Status: Acute Assessment and Plan: Tachycardia and tachypnea in setting of cellulitis broad spectrum therapy with Vanco given history of MRSA MRSA nasal swab pending Blood cultures growing gram positive cocci clusters Currently not draining so unable to collect culture left upper extremity ultrasound ordered r/o abscess development. US shows some phlegmonous changes but no drainable abscess. Left upper arm Doppler shows left ulnar DVT, patient is already on Eliquis 5 mg BID for heart thrombus however, he was not taking this medication as prescribed. Will continue with Eliquis 10 mg PO BID through 03/23. Thoracic MRI pending final read (2) Cellulitis: Qualifiers: Laterality: left Site of cellulitis: extremity Site of cellulitis of extremity: upper extremity Qualified Code(s): L03.114 - Cellulitis of left upper limb Code(s): L03.90 - Cellulitis, unspecified Status: Acute Assessment and Plan: see above (3) Deep vein thrombosis of ulnar vein: Code(s): I82.629 - Acute embolism and thrombosis of deep veins of unspecified upper extremity Status: Acute Assessment and Plan: Left arm swelling and cellulitis Phlegmonous changes seen in the left arm but no drainable abscess. Doppler shows left ulnar vein thrombus Already on Eliquis. Increased dose to 10 mg PO BID 03/23/23 limb alert to left arm (4) Elevated troponin: Code(s): R79.89 - Other specified abnormal findings of blood chemistry Status: Acute Assessment and Plan: Troponin on admission was 0.108--->0.106 this morning suspect related to chronic cardiomyopathy on tele EKG with left atrial enlargement as well as LV hypertrophy and ST-T change 03/16 did complain of chest pain which he says is more in his mid-left back. EKG unchanged. Troponin continues to decline. (5) Systolic heart failure: Qualifiers: Heart failure chronicity: chronic Qualified Code(s): I50.22 - Chronic systolic (congestive) heart failure Code(s): I50.20 - Unspecified systolic (congestive) heart failure Status: Acute Assessment and Plan: Drug induced cardiomyopathy resuming home Coreg and losartan I&Os and daily weights last echo? 20-25% EF per patient ECHO completed here 03/16 Summary ? 1. Complete two-dimensional, color flow and Doppler transthoracic echocardiogram is performed. ? 2. Left ventricular chamber dimension is moderately enlarged.? False tendon noted in LV. ? 3. Left ventricular systolic function is severely reduced, estimated at 25-30%.? Heavy trabeculation in the left ventricle.? Consider left ventricular noncompaction.? Consider cardiac MRI if clinically indicated. ? 4. There is mildly increased left ventricular wall thickness. ? 5. The left ventricular diastolic function is normal. ? 6. Global longitudinal strain is severely elevated at -7 %. ? 7. The aortic valve is quadricuspid with mild sclerosis. ? 8. There is mild aortic valve regurgitation. ? 9. There is no aortic valve stenosis. (6) Uncontrolled type 1 diabetes mellitus with hyperglycemia: Code(s): E10.65 - Type 1 diabetes mellitus with hyperglycemia Status: Acute Assessment and Plan: Typically on 10 units lispro with meals and Lantus 40 units daily was only taking Lantus at home due to low oral intake Blood glucose was > 500 on arrival Received 10 units of NovoLog in the ED at 2206 Blood glucose 71 this morning before breakfast. Hold 10 units of NovoLog. Continue with high dose SSI and hypoglycemia protocol DM diet Blood glucose has been ranging from 177-285
[2023-03-17 08:21] LABS: Glucose Point of Care 177 mg/dl (65-105)
[2023-03-17] MEDS: buPROPion HCL SR (12 HR) 150 MG TAB PO (09:17)
[2023-03-17] MEDS: carvediloL 3.125 MG TABLET PO ×2 (09:17→20:54)
[2023-03-17] MEDS: NYSTATIN 100,000 UNITS/ML SUSP 5 ML ORAL.SUSP PO ×4 (09:18→20:54)
[2023-03-17] MEDS: APIXABAN 5 MG TABLET PO (09:18)
[2023-03-17] MEDS: PANTOPRAZOLE 40 MG TABLET PO (09:18)
[2023-03-17] MEDS: LOSARTAN POTASSIUM 25 MG TABLET PO (09:18)
[2023-03-17] MEDS: ATORVASTATIN 10 MG TABLET PO (09:18)
[2023-03-17] MEDS: INSULIN GLARGINE (*BKC) 100 UNITS/ML 40 UNITS SUB-Q (09:23)
[2023-03-17] MEDS: INSULIN ASPART (*BKC) 100 UNITS/ML 10 UNITS SUB-Q ×2 (09:23→12:19)
[2023-03-17] MEDS: MORPHINE SULFATE (*CRX) 4 MG/ML INJ IV PUSH ×2 (09:33→22:48)
[2023-03-17 11:47] LABS: Glucose Point of Care 367 mg/dl (65-105)
[2023-03-17] MEDS: INSULIN ASPART (*BKC) 100 UNITS/ML SUB-Q (12:19)
[2023-03-17 16:49] LABS: Glucose Point of Care 98 mg/dl (65-105)
[2023-03-17] MEDS: oxyCODONE HCL (*CRX) 5 MG TAB IR 10 MG PO ×2 (17:03→20:55)
[2023-03-17] MEDS: LIDOCAINE 5% PATCH 2 PATCH TRANSDERM (17:07)
[2023-03-17 20:39] LABS: Glucose Point of Care 198 mg/dl (65-105)
[2023-03-17] MEDS: traZODone HCL 50 MG TABLET PO (20:55)
[2023-03-17] MEDS: APIXABAN 5 MG TABLET 10 MG PO (20:55)
[2023-03-18] VITALS (10 sets, daily range): BP systolic 107–120; BP diastolic 62–77; PULSE 91–105; RESP 14–16; TEMP 36.7–37.3; O2SAT 93–97; BMI 24.3
[2023-03-18] MEDS: oxyCODONE HCL (*CRX) 5 MG TAB IR 10 MG PO ×3 (00:44→17:45)
[2023-03-18 04:42] LABS: Basophils Percent Auto 0.4 % (0.2-1.2); Eosinophils Absolute Auto 0.1 K/mm3 (0-0.3); Hematocrit 33.4 % (42.0-52.0); Hemoglobin 10.9 g/dL (14.0-18.0); Immature Granulocyte Absolute 0.04 K/mm3 (0.00-0.031); Immature Granulocyte Percent A 0.4 % (0-0.5); Lymphocytes Absolute Auto 1.14 K/mm3 (0.9-3.2); Lymphocytes Percent Auto 11.2 % (18.3-44.2); Mean Corpuscular HGB Conc 32.6 g/dl (32-36); Mean Corpuscular Volume 82.7 fl (80-100); Mean Platelet Volume 10.1 fl (7.4-10.4); Monocytes Absolute Auto 0.7 K/mm3 (0.1-0.6); Monocytes Percent Auto 6.5 % (2.6-8.5); Neutrophils Absolute Auto 8.2 K/mm3 (1.3-6.7); Neutrophils Percent Auto 80.5 % (45.5-73.1); Platelet Count Result 263 k/mm3 (150-375); Red Blood Count 4.04 M/mm3 (4.6-6.20); Red Cell Distribution Width 14.2 % (11.5-14.5); White Blood Count 10.2 K/mm3 (4.5-10.0)
[2023-03-18 04:54] LABS: Alanine Aminotransferase 14 U/L (6-50); Albumin Level 2.9 g/dL (3.5-5.1); Alkaline Phosphatase 85 U/L (38-126); Anion Gap 6 mmol/L (8-16); Aspartate Amino Transferase 17 U/L (17-59); Bilirubin,Total 0.7 mg/dL (0.2-1.3); Blood Urea Nitrogen 21 mg/dL (9-20); Carbon Dioxide 25 mmol/L (22-30); Chloride 95 mmol/L (98-107); Estimated CRCL calculation 73 ml/min; Estimated Glomerular Filt Rate > 60; Glucose 189 mg/dL (65-110); Potassium 4.2 mmol/L (3.4-5.0); Sodium 126 mmol/L (137-145)
[2023-03-18 04:59] LABS: Vancomycin Trough 10.1 ug/mL (10.0-20.0)
[2023-03-18 07:58] LABS: Glucose Point of Care 184 mg/dl (65-105)
[2023-03-18] MEDS: PANTOPRAZOLE 40 MG TABLET PO (08:13)
[2023-03-18] MEDS: GABAPENTIN 300 MG CAPSULE PO ×2 (08:13→17:45)
[2023-03-18] MEDS: LOSARTAN POTASSIUM 25 MG TABLET PO (08:13)
[2023-03-18] MEDS: INSULIN ASPART (*BKC) 100 UNITS/ML 10 UNITS SUB-Q ×2 (08:13→12:39)
[2023-03-18] MEDS: hydrOXYzine HCL 25 MG TABLET PO ×2 (08:13→17:45)
[2023-03-18] MEDS: carvediloL 3.125 MG TABLET PO ×2 (08:14→20:25)
[2023-03-18] MEDS: ATORVASTATIN 10 MG TABLET PO (08:14)
[2023-03-18] MEDS: APIXABAN 5 MG TABLET 10 MG PO ×2 (08:14→20:25)
[2023-03-18] MEDS: buPROPion HCL SR (12 HR) 150 MG TAB PO (08:14)
[2023-03-18] MEDS: INSULIN GLARGINE (*BKC) 100 UNITS/ML 40 UNITS SUB-Q (08:19)
[2023-03-18] MEDS: NYSTATIN 100,000 UNITS/ML SUSP 5 ML ORAL.SUSP PO ×4 (08:19→20:26)
--- NOTE | 2023-03-18 11:36 | P.PNIM_ITS ---
Progress Note: A&P Assessment and Plan (1) Sepsis: Qualifiers: Sepsis acute organ dysfunction status: without acute organ dysfunction Sepsis type: sepsis due to unspecified organism Qualified Code(s): A41.9 - S epsis, unspecified organism Code(s): A41.9 - Sepsis, unspecified organism Status: Acute Assessment and Plan: Tachycardia and tachypnea in setting of cellulitis * broad spectrum therapy with Vanco given history of MRSA * Currently not draining so unable to collect culture * left upper extremity ultrasound ordered r/o abscess development. US shows some phlegmonous changes but no drainable abscess. * Left upper arm Doppler shows left ulnar DVT, patient is already on Eliquis 5 mg BID for heart thrombus however, he was not taking this medication as prescribed. Will continue with Eliquis 10 mg PO BID through 03/23. * Thoracic MRI negative for infection, some cervical stenosis due to epidural fat pads (2) Cellulitis: Qualifiers: Laterality: left Site of cellulitis: extremity Site of cellulitis of extremity: upper extremity Qualified Code(s): L03.114 - Cellulitis of left upper limb Code(s): L03.90 - Cellulitis, unspecified Status: Acute Assessment and Plan: see above (3) Deep vein thrombosis of ulnar vein: Code(s): I82.629 - Acute embolism and thrombosis of deep veins of unspecified upper extremity Status: Acute Assessment and Plan: Left arm swelling and cellulitis * Phlegmonous changes seen in the left arm but no drainable abscess. * Doppler shows left ulnar vein thrombus * Already on Eliquis. Increased dose to 10 mg PO BID 03/23/23 * limb alert to left arm (4) Elevated troponin: Code(s): R79.89 - Other specified abnormal findings of blood chemistry Status: Acute Assessment and Plan: Troponin on admission was 0.108--->0.106 * suspect related to chronic cardiomyopathy * on tele * EKG with left atrial enlargement as well as LV hypertrophy and ST-T change * 03/16 did complain of chest pain which he says is more in his mid-left back. EKG unchanged. Troponin continues to decline. (5) Systolic heart failure: Qualifiers: Heart failure chronicity: chronic Qualified Code(s): I50.22 - Chronic systolic (congestive) heart failure Code(s): I50.20 - Unspecified systolic (congestive) heart failure Status: Acute Assessment and Plan: Drug induced cardiomyopathy * resuming home Coreg and losartan * I&Os and daily weights * ECHO completed here 03/16, EF of 25-30% with heavy trabeculation of the left ventricle * Cardiology consult ordered and pending (6) Uncontrolled type 1 diabetes mellitus with hyperglycemia: Code(s): E10.65 - Type 1 diabetes mellitus with hyperglycemia Status: Acute Assessment and Plan: Typically on 10 units lispro with meals and Lantus 40 units daily * was only taking Lantus at home due to low oral intake * Blood glucose was > 500 on arrival * Received 10 units of NovoLog in the ED at 2206 * Blood glucose 71 this morning before breakfast. Hold 10 units of NovoLog. * Continue with high dose SSI and hypoglycemia protocol * DM diet * Blood glucose has been ranging from 177-285 * Consult DM educator Blood glucose reviewed 03/18 (7) Nonadherence to medical treatment: Code(s): Z91.199 - Patient's noncompliance with other medical treatment and regimen due to unspecified reason Status: Acute Assessment and Plan: History of AMA most rec
--- NOTE | 2023-03-18 11:36 | PM.IMPN ---
Progress Note: A&P Assessment and Plan (1) Sepsis: Qualifiers: Sepsis acute organ dysfunction status: without acute organ dysfunction Sepsis type: sepsis due to unspecified organism Qualified Code(s): A41.9 - Sepsis, unspecified organism Code(s): A41.9 - Sepsis, unspecified organism Status: Acute Assessment and Plan: Tachycardia and tachypnea in setting of cellulitis broad spectrum therapy with Vanco given history of MRSA Currently not draining so unable to collect culture left upper extremity ultrasound ordered r/o abscess development. US shows some phlegmonous changes but no drainable abscess. Left upper arm Doppler shows left ulnar DVT, patient is already on Eliquis 5 mg BID for heart thrombus however, he was not taking this medication as prescribed. Will continue with Eliquis 10 mg PO BID through 03/23. Thoracic MRI negative for infection, some cervical stenosis due to epidural fat pads (2) Cellulitis: Qualifiers: Laterality: left Site of cellulitis: extremity Site of cellulitis of extremity: upper extremity Qualified Code(s): L03.114 - Cellulitis of left upper limb Code(s): L03.90 - Cellulitis, unspecified Status: Acute Assessment and Plan: see above (3) Deep vein thrombosis of ulnar vein: Code(s): I82.629 - Acute embolism and thrombosis of deep veins of unspecified upper extremity Status: Acute Assessment and Plan: Left arm swelling and cellulitis Phlegmonous changes seen in the left arm but no drainable abscess. Doppler shows left ulnar vein thrombus Already on Eliquis. Increased dose to 10 mg PO BID 03/23/23 limb alert to left arm (4) Elevated troponin: Code(s): R79.89 - Other specified abnormal findings of blood chemistry Status: Acute Assessment and Plan: Troponin on admission was 0.108--->0.106 suspect related to chronic cardiomyopathy on tele EKG with left atrial enlargement as well as LV hypertrophy and ST-T change 03/16 did complain of chest pain which he says is more in his mid-left back. EKG unchanged. Troponin continues to decline. (5) Systolic heart failure: Qualifiers: Heart failure chronicity: chronic Qualified Code(s): I50.22 - Chronic systolic (congestive) heart failure Code(s): I50.20 - Unspecified systolic (congestive) heart failure Status: Acute Assessment and Plan: Drug induced cardiomyopathy resuming home Coreg and losartan I&Os and daily weights ECHO completed here 03/16, EF of 25-30% with heavy trabeculation of the left ventricle Cardiology consult ordered and pending (6) Uncontrolled type 1 diabetes mellitus with hyperglycemia: Code(s): E10.65 - Type 1 diabetes mellitus with hyperglycemia Status: Acute Assessment and Plan: Typically on 10 units lispro with meals and Lantus 40 units daily was only taking Lantus at home due to low oral intake Blood glucose was > 500 on arrival Received 10 units of NovoLog in the ED at 2206 Blood glucose 71 this morning before breakfast. Hold 10 units of NovoLog. Continue with high dose SSI and hypoglycemia protocol DM diet Blood glucose has been ranging from 177-285 Consult DM educator Blood glucose reviewed 03/18 (7) Nonadherence to medical treatment: Code(s): Z91.199 - Patient's noncompliance with other medical treatment and regimen due to unspecified reason Status: Acute Assessment and Plan: History of AMA most recently at [place] this last week (8) Thrombus in heart chamber: Code(s): I51.3 - Intracardiac thrombosis, not elsewhere classified Status: Acute Assessment and Plan: Patient reports thrombus and is on Eliquis Assess his compliance with this medication as he know has a DVT LUE. May need to switch oral agents. (9) Amphetamine abuse: Code(s): F15.10 - Other stimulant abuse, u
[2023-03-18 11:37] LABS: Glucose Point of Care 145 mg/dl (65-105)
--- NOTE | 2023-03-18 12:02 | PM.CNCAR ---
Assessment and Plan Assessment and plan (1) Systolic heart failure: Qualifiers: Heart failure chronicity: chronic Qualified Code(s): I50.22 - Chronic systolic (congestive) heart failure Code(s): I50.20 - Unspecified systolic (congestive) heart failure Status: Acute Assessment and Plan: Chronic HFrEF. Presented with swelling and shortness of breath which have now resolved. Continue GDMT with ARB, beta db. Will add spironolactone Can consider adding SGLT2i as outpatient if he is able to afford it Wore a Lifevest in the past, not a candidate for ICD Monitor intake and output Daily weights Outpatient follow up with his primary surgical instrument maker at [facility] Cardiology will sign off. Please call with questions. History of Present Illness History of Present Illness Consult date/time: 03/18/23 12:02 Requesting physician: Chrissy Gonzalez DO Consult reason: congestive heart failure Reason For Visit: Soft Tissue Infection RUE, Elevated Trop, Hypergly Narrative: Eleuterio Galvan is a 47-year-old male with history of methamphetamine use and a severe cardiomyopathy. This is a patient who presented to the hospital because of worsening lower extremity edema and shortness of breath. He has had a diagnosis of heart failure for many years and has previously followed with [facility]. However, he states that over the past several years he has not followed up with his surgical instrument maker. His swelling has improved and he has no shortness of breath at rest but does have orthopnea. He did have some chest discomfort yesterday but denies any chest pain now. He is also being treated for cellulitis of his left arm. Review of Systems Review of Systems: All systems reviewed & are unremarkable except as noted in HPI and below PMFSH Past Medical History Medical History Amphetamine abuse CVA (cerebral vascular accident) (~2021) Diabetic neuropathy Essential hypertension History of cocaine use Hypothyroidism Migraines MRSA cellulitis Nonadherence to medical treatment Systolic heart failure Thrombus in heart chamber Uncontrolled type 1 diabetes mellitus with hyperglycemia Surgical History Surgical History History of facial surgery Reconstructive surgery to the face and jaw Status post open reduction with internal fixation of fracture Right 5th toe Family History Family History Mother Diabetes mellitus Hypertension COPD (chronic obstructive pulmonary disease) Father Kidney stones Hypertension Sibling Diabetes mellitus Social History Social History Social History: He is and has a believe 2 children. Patient has a history of both methamphetamine and cocaine abuse in the past. He also uses marijuana. He reports that he has been clean of illicit substance use since October of 2022 but his methamphetamine screen was positive 03/16/2023. He is living with his aunt. He quit smoking November of 2022. He denies any significant alcohol use. He reports that he previously was incarcerated for 24 years. He thinks that if he had never been incarcerated that he would probably already be from his drug addiction Code status: Full code Surrogate decision maker: Riri (spouse) Smoking packs per day: 1 Smoking cigarettes per day: 20.0 Years smoked: 30 Smoking pack-years: 30.00 Smoking status: Former smoker Smoking end date: 11/27/22 Alcohol intake: former Drinks per week: 1 Substance use: current Substance use type: methamphetamine Lack of Transportation: No Lack of Food: Never True Current Housing: I Have Housing Concerned About Future Housing: No Difficulty Paying Gas/Electric Bills: No Difficulty
[2023-03-18 16:44] LABS: Glucose Point of Care 75 mg/dl (65-105)
[2023-03-18] MEDS: INSULIN ASPART (*BKC) 100 UNITS/ML SUB-Q (20:25)
[2023-03-18] MEDS: traZODone HCL 50 MG TABLET PO (20:25)
[2023-03-18 20:28] LABS: Glucose Point of Care 353 mg/dl (65-105)
[2023-03-19] VITALS (10 sets, daily range): BP systolic 106–119; BP diastolic 65–69; PULSE 78–96; RESP 12–22; TEMP 36.6–37.1; O2SAT 95–97
[2023-03-19 07:49] LABS: Basophils Percent Auto 0.5 % (0.2-1.2); Eosinophils Absolute Auto 0.1 K/mm3 (0-0.3); Eosinophils Percent Auto 1.5 % (0-4.4); Hematocrit 35.3 % (42.0-52.0); Hemoglobin 11.4 g/dL (14.0-18.0); Immature Granulocyte Absolute 0.05 K/mm3 (0.00-0.031); Immature Granulocyte Percent A 0.6 % (0-0.5); Lymphocytes Absolute Auto 1.21 K/mm3 (0.9-3.2); Lymphocytes Percent Auto 15.1 % (18.3-44.2); Mean Corpuscular HGB Conc 32.3 g/dl (32-36); Mean Corpuscular Hemoglobin 26.6 pg (26-34); Mean Corpuscular Volume 82.5 fl (80-100); Mean Platelet Volume 9.4 fl (7.4-10.4); Monocytes Absolute Auto 0.6 K/mm3 (0.1-0.6); Monocytes Percent Auto 7.6 % (2.6-8.5); Neutrophils Percent Auto 74.7 % (45.5-73.1); Platelet Count Result 270 k/mm3 (150-375); Red Blood Count 4.28 M/mm3 (4.6-6.20); Red Cell Distribution Width 14.3 % (11.5-14.5)
[2023-03-19 07:58] LABS: Glucose Point of Care 261 mg/dl (65-105)
[2023-03-19 08:05] LABS: Alanine Aminotransferase 14 U/L (6-50); Albumin Level 2.8 g/dL (3.5-5.1); Alkaline Phosphatase 84 U/L (38-126); Anion Gap 6 mmol/L (8-16); Aspartate Amino Transferase 17 U/L (17-59); Bilirubin,Total 0.4 mg/dL (0.2-1.3); Blood Urea Nitrogen 17 mg/dL (9-20); Calcium 8.1 mg/dL (8.4-10.2); Carbon Dioxide 27 mmol/L (22-30); Chloride 97 mmol/L (98-107); Estimated CRCL calculation 80 ml/min; Estimated Glomerular Filt Rate > 60; Glucose 270 mg/dL (65-110); Potassium 4.2 mmol/L (3.4-5.0); Sodium 130 mmol/L (137-145)
[2023-03-19] MEDS: NYSTATIN 100,000 UNITS/ML SUSP 5 ML ORAL.SUSP PO ×4 (08:08→20:41)
[2023-03-19] MEDS: SPIRONOLACTONE 25 MG TABLET PO (08:09)
[2023-03-19] MEDS: APIXABAN 5 MG TABLET 10 MG PO ×2 (08:09→20:40)
[2023-03-19] MEDS: GABAPENTIN 300 MG CAPSULE PO ×2 (08:09→20:40)
[2023-03-19] MEDS: carvediloL 3.125 MG TABLET PO ×2 (08:09→20:40)
[2023-03-19] MEDS: buPROPion HCL SR (12 HR) 150 MG TAB PO (08:09)
[2023-03-19] MEDS: hydrOXYzine HCL 25 MG TABLET PO ×3 (08:09→20:40)
[2023-03-19] MEDS: ATORVASTATIN 10 MG TABLET PO (08:09)
[2023-03-19] MEDS: INSULIN ASPART (*BKC) 100 UNITS/ML 10 UNITS SUB-Q ×3 (08:10→17:50)
[2023-03-19] MEDS: LOSARTAN POTASSIUM 25 MG TABLET PO (08:10)
[2023-03-19] MEDS: PANTOPRAZOLE 40 MG TABLET PO (08:10)
[2023-03-19] MEDS: oxyCODONE HCL (*CRX) 5 MG TAB IR 10 MG PO ×2 (08:10→17:50)
[2023-03-19] MEDS: INSULIN GLARGINE (*BKC) 100 UNITS/ML 40 UNITS SUB-Q (08:11)
[2023-03-19] MEDS: INSULIN ASPART (*BKC) 100 UNITS/ML SUB-Q ×2 (08:11→17:50)
--- NOTE | 2023-03-19 09:31 | PM.IMPN ---
Progress Note: A&P Assessment and Plan (1) Bacteremia: Code(s): R78.81 - Bacteremia Status: Acute Assessment and Plan: 2/2 blood cultures positive for MRSA, continue vancomycin, repeat blood cultures ordered and pending (2) Cellulitis: Qualifiers: Laterality: left Site of cellulitis: extremity Site of cellulitis of extremity: upper extremity Qualified Code(s): L03.114 - Cellulitis of left upper limb Code(s): L03.90 - Cellulitis, unspecified Status: Acute Assessment and Plan: Left upper extremity ultrasound ordered r/o abscess development. US shows some phlegmonous changes but no drainable abscess. Left upper arm Doppler shows left ulnar DVT, patient is already on Eliquis 5 mg BID for heart thrombus however, he was not taking this medication as prescribed. Will continue with Eliquis 10 mg PO BID through 03/23. Due to worsening pain and some tightness, CT left upper extremity ordered (3) Sepsis: Qualifiers: Sepsis acute organ dysfunction status: without acute organ dysfunction Sepsis type: sepsis due to unspecified organism Qualified Code(s): A41.9 - Sepsis, unspecified organism Code(s): A41.9 - Sepsis, unspecified organism Status: Acute Assessment and Plan: see above (4) Deep vein thrombosis of ulnar vein: Code(s): I82.629 - Acute embolism and thrombosis of deep veins of unspecified upper extremity Status: Acute Assessment and Plan: Left arm swelling and cellulitis Phlegmonous changes seen in the left arm but no drainable abscess. Doppler shows left ulnar vein thrombus Already on Eliquis. Increased dose to 10 mg PO BID 03/23/23 (5) Elevated troponin: Code(s): R79.89 - Other specified abnormal findings of blood chemistry Status: Acute Assessment and Plan: Troponin on admission was 0.108--->0.106, suspect related to chronic cardiomyopathy, appreciate cardiology consult Monitor telemetry (6) Systolic heart failure: Qualifiers: Heart failure chronicity: chronic Qualified Code(s): I50.22 - Chronic systolic (congestive) heart failure Code(s): I50.20 - Unspecified systolic (congestive) heart failure Status: Acute Assessment and Plan: Drug induced cardiomyopathy resuming home Coreg and losartan I&Os and daily weights ECHO completed here 03/16, EF of 25-30% with heavy trabeculation of the left ventricle Cardiology consult ordered and pending (7) Uncontrolled type 1 diabetes mellitus with hyperglycemia: Code(s): E10.65 - Type 1 diabetes mellitus with hyperglycemia Status: Acute Assessment and Plan: Typically on 10 units lispro with meals and Lantus 40 units daily was only taking Lantus at home due to low oral intake Blood glucose was > 500 on arrival Received 10 units of NovoLog in the ED at 2206 Blood glucose 71 this morning before breakfast. Hold 10 units of NovoLog. Continue with high dose SSI and hypoglycemia protocol DM diet Blood glucose has been ranging from 177-285 Consult DM educator Blood glucose reviewed 03/18 (8) Nonadherence to medical treatment: Code(s): Z91.199 - Patient's noncompliance with other medical treatment and regimen due to unspecified reason Status: Acute Assessment and Plan: History of AMA most recently at [place] this last week (9) Thrombus in heart chamber: Code(s): I51.3 - Intracardiac thrombosis, not elsewhere classified Status: Acute Assessment and Plan: Patient reports thrombus and is on Eliquis, was noncompliant (10) Amphetamine abuse: Code(s): F15.10 - Other stimulant abuse, uncomplicated Status: Acute Assessment and Plan: Patient states he has taken Wellbutrin and naltrexone to help him quit using methamphetamines.? Patient is receiving [place] currently.? Naltrexone is on hold.? The importance of adherence t
--- NOTE | 2023-03-19 10:53 | PM.CNOR ---
Assessment and Plan Assessment and plan (1) Cellulitis of arm, left: Code(s): L03.114 - Cellulitis of left upper limb Status: Acute Assessment and Plan: Improved on the IV antibiotics (2) Deep vein thrombosis of ulnar vein: Qualifiers: Chronicity: unspecified Laterality: left Qualified Code(s): I82.622 - Acute embolism and thrombosis of deep veins of left upper extremity Code(s): I82.629 - Acute embolism and thrombosis of deep veins of unspecified upper extremity Status: Acute Assessment and Plan: symptoms likely secondary to localized soft tissue infection and DVT. Recommend adding heating pad. Thank you for the consultation. I will follow while in the hospital. History of Present Illness HPI Consult date: 03/19/23 Requesting physician: Chrissy Gonzalez DO Consult reason: other ( left arm pain) Chief complaint: Soft Tissue Infection RUE, Elevated Trop, Hypergly Narrative: This document created with [id number] technology and is subject to hand violin maker irregularities. 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 Question of compartment syndrome was brought up. His history is significant for having been hospitalized in [place] recently. He left A when he thought that an infected AV site was not being addressed to his satisfaction. Upon arrival here he was noted that he had pain and swelling in the left upper extremity. He has also has got positive MRSA blood cultures x2. Currently on vancomycin. He is complaining of pain in the ulnar aspect of the right upper arm just proximal to the elbow. Was noted to have an ulnar vein DVT and this is in the area where he had the reported infected IV site. Phlegmon noted on ultrasound with no clear-cut abscess. CT scan done this morning but is not available yet. Substance abuse history well detailed in the record. Significant medical comorbidities also well detailed. Review of Systems Review of Systems: 12 point review of systems was assessed and was negative except as noted in the HPI Constitutional: Constitutional: Reports no additional constitutional complaints, Denies excessive sweating and Denies fatigue Eyes: Eyes: Reports no additional eye complaints ENT: Reports system reviewed and no additional complaints, except as documented Cardiovascular: Cardiovascular: Denies chest pain at rest and Denies dyspnea Respiratory: Respiratory: Reports no additional respiratory complaints and Denies dyspnea Gastrointestinal: Gastrointestinal: Reports no additional gastrointestinal complaints Musculoskeletal: Musculoskeletal: Reports as per HPI Integumentary/Breasts: Skin/Breast: Reports system reviewed and no additional complaints, except as docu Neurologic: Reports as per HPI Endocrine: Endocrine: Denies excessive sweating and Denies fatigue Hematologic/Lymphatic: Hematologic/Lymphatic: Denies easy bleeding and Denies easy bruising PMFSH Past Medical History Medical History Amphetamine abuse CVA (cerebral vascular accident) (~2021) Diabetic neuropathy Essential hypertension History of cocaine use Hypothyroidism Migraines MRSA cellulitis Nonadherence to medical treatment Systolic heart failure Thrombus in heart chamber Uncontrolled type 1 diabetes mellitus with hyperglycemia Surgical History Surgical History History of facial surgery Reconstructive surgery to the face and jaw Status post open reduction with internal fixation of fracture Right 5th toe Family History Family History Mother Diabetes mellitus Hypertension COPD (chronic obstructive pulmonary disease) Father Kidney stones Hypertension Sibling Diabetes mellitus Social History Social History (Reviewed 03/19/23 @ 10:57 by Demian
[2023-03-19 12:12] LABS: Glucose Point of Care 112 mg/dl (65-105)
--- NOTE | 2023-03-19 14:32 | PM.PNCARD ---
Progress Note: A&P Assessment and Plan (1) Bacteremia: Code(s): R78.81 - Bacteremia Status: Acute Plan 47-year-old man with a history of methamphetamine abuse he appears to have infected IV site and probably has infected thrombophlebitis with a ulnar are vein thrombus in that arm as well. He is appropriately and up coagulated and on appropriate antibiotics. His echocardiogram is a very good quality study and there are no findings that are suggestive of or suspicious for an infectious vegetation. No unusual regurgitant lesions are seen. His left ventricle is significantly dilated and as such the trabeculations are more prominent as Dr. Duenas mentioned in his dictation. I do not see any convincing evidence of left ventricular clot. I would treat the patient with IV antibiotics as his left arm infection would require but I do not believe we need to consider the diagnosis of infective endocarditis. If the transthoracic study was of limited quality then a follow-up CHUY of course would have to be considered but the transthoracic study was of excellent image quality. Henry Cross MD [facility] Subjective Date/time seen: Date of service: 03/19/23 14:32 Interval history: Follow-up visit in this 47-year-old man with: Appears to have infected thrombophlebitis of the left upper extremity related to infected IV site at another hospital. He had Staph aureus in his blood upon arrival and is on appropriate intravenous antibiotics. He has a history of illicit drug use with methamphetamine and also history of severe cardiomyopathy and receives his cardiovascular care elsewhere. Patient was seen yesterday in consultation by my nurse practitioner. At that time there were no additional recommendations. Re consult today to see the patient regarding question about endocarditis at also question about LV thrombus. Echocardiogram from yesterday has been reviewed in detail. Results explained with the patient. He also reports a history of long recent hospitalization several months ago at [facility] where this same question will arose he underwent esophageal ECHO at that hospital with negative findings. Exam Const: General: comfortable and no acute distress Other: Pleasant chronically ill-appearing man no distress HENMT: Mouth: Yes moist mucous membranes Eyes: Sclera: sclerae normal Neck: Neck: supple and no JVD Resp: Effort & Inspection: normal respiratory effort Auscultation: clear to auscultation bilaterally Cardio: Rate: regular rate Rhythm: regular rhythm Other: No murmur no gallop GI: GI Palp: Yes Soft to palpation Auscultation: normal bowel sounds Skin: General skin exam: normal color Neuro: Other: Alert and oriented x3 Extrem: Other: Left upper extremity wrapped in his warming blanket/wraps Objective Data Vital Signs Vital Signs: Vital Signs - 24 hr 03/18/23 16:00 03/18/23 20:25 03/18/23 20:00 Temperature Pulse Rate 91 94 Respiratory Rate Blood Pressure Pulse Oximetry 97 Oxygen Delivery Room Air 03/18/23 21:06 03/18/23 20:00 03/19/23 00:00 Temperature 37.3 C Pulse Rate 97 97 89 Respiratory Rate 14 Blood Pressure 120/77 Pulse Oximetry 94 Oxygen Delivery 03/19/23 04:00 03/19/23 05:18 03/19/23 08:09 Temperature 36.6 C Pulse Rate 79 78 86 Respiratory Rate 12 Blood Pressure 106/65 Pulse Oximetry 95 Oxygen Delivery 03/19/23 08:10 03/19/23 08:10 Temperature Pulse Rate 87 Respiratory Rate Blood Pressure Pulse Oximetry Oxygen Delivery Room Air Intake/Output Intake/Output: Intake & Output 03/16/23 03/17/23 03/18/23 03/19/23 23:59 23:59 23:59 23:59 Intake Total 2019 2950 2590 1360 Output Total 1140 2800 Balance 2020 2950 1450 -1440 Meds/Results Medications: Active Medications Generic Name Dose Route Start Last Admin Trade Name Freq PRN Reason Stop Dose Admin Acetaminophen
[2023-03-19 17:24] LABS: Glucose Point of Care 218 mg/dl (65-105)
[2023-03-19 17:39] LABS: Vancomycin Trough 16.5 ug/mL (10.0-20.0)
[2023-03-19] MEDS: ACETAMINOPHEN 325 MG TABLET 650 MG PO (20:39)
[2023-03-19] MEDS: traZODone HCL 50 MG TABLET PO (20:40)
[2023-03-19 21:18] LABS: Glucose Point of Care 154 mg/dl (65-105)
[2023-03-20] VITALS (12 sets, daily range): BP systolic 103–123; BP diastolic 63–82; PULSE 78–96; RESP 16–18; TEMP 36.6–36.8; O2SAT 96–99
[2023-03-20 06:32] LABS: Basophils Absolute Auto 0.1 K/mm3 (0.0-0.1); Basophils Percent Auto 0.7 % (0.2-1.2); Eosinophils Absolute Auto 0.2 K/mm3 (0-0.3); Eosinophils Percent Auto 2.3 % (0-4.4); Hematocrit 35.1 % (42.0-52.0); Immature Granulocyte Absolute 0.09 K/mm3 (0.00-0.031); Immature Granulocyte Percent A 1.2 % (0-0.5); Lymphocytes Absolute Auto 1.37 K/mm3 (0.9-3.2); Lymphocytes Percent Auto 17.8 % (18.3-44.2); Mean Corpuscular HGB Conc 31.3 g/dl (32-36); Mean Corpuscular Hemoglobin 26.3 pg (26-34); Mean Platelet Volume 9.5 fl (7.4-10.4); Monocytes Absolute Auto 0.6 K/mm3 (0.1-0.6); Monocytes Percent Auto 8.1 % (2.6-8.5); Neutrophils Absolute Auto 5.4 K/mm3 (1.3-6.7); Neutrophils Percent Auto 69.9 % (45.5-73.1); Platelet Count Result 335 k/mm3 (150-375); Red Blood Count 4.18 M/mm3 (4.6-6.20); Red Cell Distribution Width 14.1 % (11.5-14.5); White Blood Count 7.7 K/mm3 (4.5-10.0)
[2023-03-20 06:47] LABS: Alanine Aminotransferase 15 U/L (6-50); Albumin Level 2.9 g/dL (3.5-5.1); Alkaline Phosphatase 82 U/L (38-126); Anion Gap 5 mmol/L (8-16); Aspartate Amino Transferase 22 U/L (17-59); Bilirubin,Total 0.4 mg/dL (0.2-1.3); Blood Urea Nitrogen 17 mg/dL (9-20); Calcium 8.3 mg/dL (8.4-10.2); Carbon Dioxide 28 mmol/L (22-30); Chloride 100 mmol/L (98-107); Estimated CRCL calculation 80 ml/min; Estimated Glomerular Filt Rate > 60; Glucose 132 mg/dL (65-110); Potassium 4.3 mmol/L (3.4-5.0); Sodium 133 mmol/L (137-145)
[2023-03-20 08:05] LABS: Glucose Point of Care 144 mg/dl (65-105)
[2023-03-20] MEDS: oxyCODONE HCL (*CRX) 5 MG TAB IR 10 MG PO ×3 (08:12→16:53)
[2023-03-20] MEDS: APIXABAN 5 MG TABLET 10 MG PO ×2 (08:12→20:45)
[2023-03-20] MEDS: buPROPion HCL SR (12 HR) 150 MG TAB PO (08:12)
[2023-03-20] MEDS: NYSTATIN 100,000 UNITS/ML SUSP 5 ML ORAL.SUSP PO ×4 (08:12→20:45)
[2023-03-20] MEDS: ATORVASTATIN 10 MG TABLET PO (08:12)
[2023-03-20] MEDS: SPIRONOLACTONE 25 MG TABLET PO (08:13)
[2023-03-20] MEDS: PANTOPRAZOLE 40 MG TABLET PO (08:13)
[2023-03-20] MEDS: INSULIN ASPART (*BKC) 100 UNITS/ML 10 UNITS SUB-Q ×3 (08:13→16:54)
[2023-03-20] MEDS: hydrOXYzine HCL 25 MG TABLET PO ×4 (08:13→20:45)
[2023-03-20] MEDS: LOSARTAN POTASSIUM 25 MG TABLET PO (08:13)
[2023-03-20] MEDS: GABAPENTIN 300 MG CAPSULE PO ×4 (08:13→20:45)
[2023-03-20] MEDS: carvediloL 3.125 MG TABLET PO ×2 (08:13→20:45)
[2023-03-20] MEDS: INSULIN GLARGINE (*BKC) 100 UNITS/ML 40 UNITS SUB-Q (08:14)
[2023-03-20 11:32] LABS: Glucose Point of Care 303 mg/dl (65-105)
[2023-03-20] MEDS: INSULIN ASPART (*BKC) 100 UNITS/ML SUB-Q ×2 (11:41→16:54)
--- NOTE | 2023-03-20 12:25 | PM.IMPN ---
Progress Note: A&P Assessment and Plan (1) Bacteremia: Code(s): R78.81 - Bacteremia Status: Acute Assessment and Plan: 2/2 blood cultures positive for MRSA, continue vancomycin, repeat blood cultures ordered and pending (2) Cellulitis: Qualifiers: Site of cellulitis: extremity Site of cellulitis of extremity: upper extremity Laterality: left Qualified Code(s): L03.114 - Cellulitis of left upper limb Code(s): L03.90 - Cellulitis, unspecified Status: Acute Assessment and Plan: Left upper extremity ultrasound ordered r/o abscess development. US shows some phlegmonous changes but no drainable abscess. Left upper arm Doppler shows left ulnar DVT, patient is already on Eliquis 5 mg BID for heart thrombus however, he was not taking this medication as prescribed. Will continue with Eliquis 10 mg PO BID through 03/23. Due to worsening pain and some tightness, CT left upper extremity ordered--abnormal, concerning for nec fasc, MRI ordered and pending (3) Sepsis: Qualifiers: Sepsis type: sepsis due to unspecified organism Sepsis acute organ dysfunction status: without acute organ dysfunction Qualified Code(s): A41.9 - Sepsis, unspecified organism Code(s): A41.9 - Sepsis, unspecified organism Status: Acute Assessment and Plan: see above (4) Deep vein thrombosis of ulnar vein: Qualifiers: Chronicity: unspecified Laterality: left Qualified Code(s): I82.622 - Acute embolism and thrombosis of deep veins of left upper extremity Code(s): I82.629 - Acute embolism and thrombosis of deep veins of unspecified upper extremity Status: Acute Assessment and Plan: Left arm swelling and cellulitis Phlegmonous changes seen in the left arm but no drainable abscess. Doppler shows left ulnar vein thrombus Already on Eliquis. Increased dose to 10 mg PO BID 03/23/23 (5) Elevated troponin: Code(s): R79.89 - Other specified abnormal findings of blood chemistry Status: Acute Assessment and Plan: Troponin on admission was 0.108--->0.106, suspect related to chronic cardiomyopathy, appreciate cardiology consult Monitor telemetry (6) Systolic heart failure: Qualifiers: Heart failure chronicity: chronic Qualified Code(s): I50.22 - Chronic systolic (congestive) heart failure Code(s): I50.20 - Unspecified systolic (congestive) heart failure Status: Acute Assessment and Plan: Drug induced cardiomyopathy resuming home Coreg and losartan I&Os and daily weights ECHO completed here 03/16, EF of 25-30% with heavy trabeculation of the left ventricle Cardiology consult ordered and pending (7) Uncontrolled type 1 diabetes mellitus with hyperglycemia: Code(s): E10.65 - Type 1 diabetes mellitus with hyperglycemia Status: Acute Assessment and Plan: Typically on 10 units lispro with meals and Lantus 40 units daily was only taking Lantus at home due to low oral intake Blood glucose was > 500 on arrival Received 10 units of NovoLog in the ED at 2206 Blood glucose 71 this morning before breakfast. Hold 10 units of NovoLog. Continue with high dose SSI and hypoglycemia protocol DM diet Blood glucose has been ranging from 177-285 Consult DM educator Blood glucose reviewed 03/20 (8) Nonadherence to medical treatment: Code(s): Z91.199 - Patient's noncompliance with other medical treatment and regimen due to unspecified reason Status: Acute Assessment and Plan: History of AMA most recently at [place] this last week (9) Thrombus in heart chamber: Code(s): I51.3 - Intracardiac thrombosis, not elsewhere classified Status: Acute Assessment and Plan: Patient reports thrombus and is on Eliquis, was noncompliant (10) Amphetamine abuse: Code(s): F15.10 - Other stimulant abuse, uncomplicated St
[2023-03-20 16:27] LABS: Glucose Point of Care 232 mg/dl (65-105)
[2023-03-20] MEDS: traZODone HCL 50 MG TABLET PO (20:45)
[2023-03-20 20:54] LABS: Glucose Point of Care 122 mg/dl (65-105)
[2023-03-21] VITALS (10 sets, daily range): BP systolic 114–150; BP diastolic 72–87; PULSE 79–92; RESP 18–20; TEMP 36.3–36.8; O2SAT 99–100
[2023-03-21] MEDS: oxyCODONE HCL (*CRX) 5 MG TAB IR 10 MG PO ×2 (06:13→11:28)
[2023-03-21 06:29] LABS: Basophils Absolute Auto 0.1 K/mm3 (0.0-0.1); Basophils Percent Auto 1.1 % (0.2-1.2); Eosinophils Absolute Auto 0.2 K/mm3 (0-0.3); Eosinophils Percent Auto 2.5 % (0-4.4); Hematocrit 35.4 % (42.0-52.0); Hemoglobin 11.1 g/dL (14.0-18.0); Immature Granulocyte Absolute 0.24 K/mm3 (0.00-0.031); Immature Granulocyte Percent A 2.8 % (0-0.5); Lymphocytes Absolute Auto 1.54 K/mm3 (0.9-3.2); Mean Corpuscular HGB Conc 31.4 g/dl (32-36); Mean Corpuscular Hemoglobin 26.6 pg (26-34); Mean Corpuscular Volume 84.7 fl (80-100); Mean Platelet Volume 9.4 fl (7.4-10.4); Monocytes Absolute Auto 0.6 K/mm3 (0.1-0.6); Monocytes Percent Auto 7.4 % (2.6-8.5); Neutrophils Absolute Auto 5.8 K/mm3 (1.3-6.7); Neutrophils Percent Auto 68.2 % (45.5-73.1); Platelet Count Result 438 k/mm3 (150-375); Red Blood Count 4.18 M/mm3 (4.6-6.20); Red Cell Distribution Width 14.2 % (11.5-14.5); White Blood Count 8.6 K/mm3 (4.5-10.0)
[2023-03-21 06:39] LABS: Alanine Aminotransferase 17 U/L (6-50); Albumin Level 3.1 g/dL (3.5-5.1); Alkaline Phosphatase 98 U/L (38-126); Anion Gap 6 mmol/L (8-16); Aspartate Amino Transferase 27 U/L (17-59); Bilirubin,Total 0.4 mg/dL (0.2-1.3); Blood Urea Nitrogen 16 mg/dL (9-20); Calcium 8.4 mg/dL (8.4-10.2); Carbon Dioxide 27 mmol/L (22-30); Chloride 99 mmol/L (98-107); Estimated CRCL calculation 80 ml/min; Estimated Glomerular Filt Rate > 60; Glucose 333 mg/dL (65-110); Potassium 4.8 mmol/L (3.4-5.0); Sodium 132 mmol/L (137-145)
[2023-03-21 07:40] LABS: Glucose Point of Care 320 mg/dl (65-105)
[2023-03-21] MEDS: INSULIN ASPART (*BKC) 100 UNITS/ML SUB-Q ×2 (08:09→20:16)
[2023-03-21] MEDS: INSULIN ASPART (*BKC) 100 UNITS/ML 10 UNITS SUB-Q ×2 (08:10→12:42)
[2023-03-21] MEDS: INSULIN GLARGINE (*BKC) 100 UNITS/ML 40 UNITS SUB-Q (08:11)
[2023-03-21] MEDS: carvediloL 3.125 MG TABLET PO ×2 (08:13→20:08)
[2023-03-21] MEDS: NYSTATIN 100,000 UNITS/ML SUSP 5 ML ORAL.SUSP PO ×4 (08:13→22:42)
[2023-03-21] MEDS: LOSARTAN POTASSIUM 25 MG TABLET PO (08:14)
[2023-03-21] MEDS: SPIRONOLACTONE 25 MG TABLET PO (08:14)
[2023-03-21] MEDS: buPROPion HCL SR (12 HR) 150 MG TAB PO (08:14)
[2023-03-21] MEDS: PANTOPRAZOLE 40 MG TABLET PO (08:14)
[2023-03-21] MEDS: ATORVASTATIN 10 MG TABLET PO (08:15)
[2023-03-21] MEDS: APIXABAN 5 MG TABLET 10 MG PO ×2 (08:26→20:08)
--- NOTE | 2023-03-21 11:23 | PM.PNORT ---
Progress Note: A&P Assessment and Plan (1) Deep vein thrombosis of ulnar vein: Qualifiers: Chronicity: unspecified Laterality: left Qualified Code(s): I82.622 - Acute embolism and thrombosis of deep veins of left upper extremity Code(s): I82.629 - Acute embolism and thrombosis of deep veins of unspecified upper extremity Status: Acute Assessment and Plan: I reviewed the CT results. This really is not the picture necrotizing fasciitis. Reasonable study to try and further elucidate this but at this point this really looks like an infected arm DVT. Using the heating pad. I will continue to follow. Subjective Subjective Date/Time Seen: 03/21/23 11:23 Interval history: Still complains of pain medial aspect elbow. Review of Systems Review of Systems: Unchanged Constitutional: Constitutional: Reports no additional constitutional complaints Exam Const: General: cooperative and no acute distress Extrem: Other: Exam of the firmness consistent with DVT. There is no overlying erythema. The anterior posterior upper arm and forearm compartments are all supple. Patient range of motion today is from just about full extension to almost full flexion he has got full rotation of his forearm. Neurovascular status unremarkable. Exam otherwise. Objective Data Vital Signs Vital Signs: Vital Signs - 24 hr 03/20/23 12:00 03/20/23 14:00 03/20/23 16:00 Temperature 98.2 F Pulse Rate 93 92 93 Respiratory Rate 18 Blood Pressure 103/63 Pulse Oximetry 98 Oxygen Delivery 03/20/23 20:45 03/20/23 22:00 03/20/23 20:00 Temperature 98.0 F Pulse Rate 96 95 94 Respiratory Rate 18 Blood Pressure 123/82 Pulse Oximetry 99 Oxygen Delivery 03/20/23 20:00 03/21/23 00:00 03/21/23 04:00 Temperature Pulse Rate 92 88 Respiratory Rate Blood Pressure Pulse Oximetry 99 Oxygen Delivery Room Air 03/21/23 06:00 03/21/23 08:13 03/21/23 08:10 Temperature 97.4 F L Pulse Rate 91 88 Respiratory Rate 20 Blood Pressure 150/86 H Pulse Oximetry 100 Oxygen Delivery Room Air Intake/Output Intake/Output: Intake & Output 03/18/23 03/19/23 03/20/23 03/21/23 23:59 23:59 23:59 23:59 Intake Total 2590 / 2590 2718 / 2718 1920 / 1920 290 / 290 Output Total 1140 / 1140 2800 / 2800 Balance 1450 / 1450 -82 / -82 1919 290 / 290 Meds/Results Medications: Active Medications Generic Name Dose Route Start Last Admin Trade Name Freq PRN Reason Stop Dose Admin Acetaminophen 650 mg 03/16/23 02:39 03/19/23 20:39 Acetaminophen 325 Mg Tablet PO 650 mg Q4H PRN Administration Mild Pain (1-3) or Fever Apixaban 10 mg 03/17/23 21:00 03/21/23 08:26 Apixaban 5 Mg Tablet PO 03/23/23 21:30 10 mg Q12HR GEOVANY Administration Atorvastatin Calcium 10 mg 03/16/23 09:00 03/21/23 08:15 Atorvastatin 10 Mg Tablet PO 10 mg DAILY GEOVANY Administration Bupropion HCl 150 mg 03/16/23 09:00 03/21/23 08:14 Bupropion Hcl Sr (12 Hr) 150 Mg Tab PO 150 mg DAILY GEOVANY Administration Carvedilol 3.125 mg 03/16/23 09:00 03/21/23 08:13 Carvedilol 3.125 Mg Tablet PO 3.125 mg Q12HR GEOVANY Administration Dextrose 12.5 gm 03/16/23 01:34 Dextrose 50% 25 Gm/50 Ml Syringe IV PUSH PRN PRN Hypoglycemia Protocol Gabapentin 300 mg 03/16/23 03:23 03/20/23 20:45 Gabapentin 300 Mg Capsule PO 300 mg TID PRN Administration nerve pain Glucagon 1 mg 03/16/23 01:34 Glucagon For Inj 1 Mg Vial IM PRN PRN Hypoglycemia Protocol Glucose 15 gm 03/16/23 01:34 Glucose Oral Gel 15 Gm Of Glucse In 37.5 Gm Tube PO PRN PRN Hypoglycemia Protocol Hydroxyzine HCl 25 mg 03/16/23 03:38 03/20/23 20:45 Hydroxyzine Hcl 25 Mg Tablet PO 25 mg TID PRN Administration Anxiety Dextrose 1,000 mls @ 100 mls/hr 03/16/23 01:34 Dextrose 5% 1,000 Ml IVPB
[2023-03-21 11:29] LABS: Glucose Point of Care 195 mg/dl (65-105)
[2023-03-21] MEDS: GABAPENTIN 300 MG CAPSULE PO (13:18)
--- NOTE | 2023-03-21 16:41 | PM.IMPN ---
Progress Note: A&P Assessment and Plan (1) Bacteremia: Code(s): R78.81 - Bacteremia Status: Acute Assessment and Plan: 2/2 blood cultures positive for MRSA, continue vancomycin, repeat blood cultures ordered and pending (2) Cellulitis: Qualifiers: Site of cellulitis: extremity Site of cellulitis of extremity: upper extremity Laterality: left Qualified Code(s): L03.114 - Cellulitis of left upper limb Code(s): L03.90 - Cellulitis, unspecified Status: Acute Assessment and Plan: Left upper extremity ultrasound ordered r/o abscess development. US shows some phlegmonous changes but no drainable abscess. Left upper arm Doppler shows left ulnar DVT, patient is already on Eliquis 5 mg BID for heart thrombus however, he was not taking this medication as prescribed. Will continue with Eliquis 10 mg PO BID through 03/23. Due to worsening pain and some tightness, CT left upper extremity ordered--abnormal, concerning for nec fasc, MRI ordered and pending Update: MRI showed diffuse and prominent subcutaneous edema suggestive of cellulitis as well as myositis, no concern for necrotizing fasciitis, no drainable abscess/phlegmon (3) Sepsis: Qualifiers: Sepsis type: sepsis due to unspecified organism Sepsis acute organ dysfunction status: without acute organ dysfunction Qualified Code(s): A41.9 - Sepsis, unspecified organism Code(s): A41.9 - Sepsis, unspecified organism Status: Acute Assessment and Plan: see above (4) Deep vein thrombosis of ulnar vein: Qualifiers: Chronicity: unspecified Laterality: left Qualified Code(s): I82.622 - Acute embolism and thrombosis of deep veins of left upper extremity Code(s): I82.629 - Acute embolism and thrombosis of deep veins of unspecified upper extremity Status: Acute Assessment and Plan: Left arm swelling and cellulitis Phlegmonous changes seen in the left arm but no drainable abscess. Doppler shows left ulnar vein thrombus Already on Eliquis. Increased dose to 10 mg PO BID 03/23/23 (5) Elevated troponin: Code(s): R79.89 - Other specified abnormal findings of blood chemistry Status: Acute Assessment and Plan: Troponin on admission was 0.108--->0.106, suspect related to chronic cardiomyopathy, appreciate cardiology consult Monitor telemetry (6) Systolic heart failure: Qualifiers: Heart failure chronicity: chronic Qualified Code(s): I50.22 - Chronic systolic (congestive) heart failure Code(s): I50.20 - Unspecified systolic (congestive) heart failure Status: Acute Assessment and Plan: Drug induced cardiomyopathy resuming home Coreg and losartan I&Os and daily weights Echo completed here 03/16, EF of 25-30% with heavy trabeculation of the left ventricle (7) Uncontrolled type 1 diabetes mellitus with hyperglycemia: Code(s): E10.65 - Type 1 diabetes mellitus with hyperglycemia Status: Acute Assessment and Plan: Typically on 10 units lispro with meals and Lantus 40 units daily was only taking Lantus at home due to low oral intake Blood glucose was > 500 on arrival Received 10 units of NovoLog in the ED at 2206 Blood glucose 71 this morning before breakfast. Hold 10 units of NovoLog. Continue with high dose SSI and hypoglycemia protocol DM diet Blood glucose has been ranging from 177-285 Consult DM educator Blood glucose reviewed 03/21 (8) Nonadherence to medical treatment: Code(s): Z91.199 - Patient's noncompliance with other medical treatment and regimen due to unspecified reason Status: Acute Assessment and Plan: History of AMA most recently at [place] this last week (9) Thrombus in heart chamber: Code(s): I51.3 - Intracardiac thrombosis, not elsewhere classified Status: Acute Assessment and Plan: Patient reports thrombus a
[2023-03-21 16:57] LABS: Glucose Point of Care 52 mg/dl (65-105)
[2023-03-21 17:31] LABS: Glucose Point of Care 45 mg/dl (65-105)
[2023-03-21 17:31] LABS: Glucose Point of Care 80 mg/dl (65-105)
[2023-03-21] MEDS: traZODone HCL 50 MG TABLET PO (20:08)
[2023-03-21] MEDS: oxyCODONE/ACETAMINOPHEN (*CRX) 10-325 MG TABLET 1 TAB PO (20:15)
[2023-03-21 21:53] LABS: Glucose Point of Care 271 mg/dl (65-105)
[2023-03-22] VITALS (7 sets, daily range): BP systolic 112–135; BP diastolic 73–80; PULSE 77–93; RESP 18; TEMP 36.3–36.6; O2SAT 94–99
[2023-03-22 06:40] LABS: Basophils Absolute Auto 0.1 K/mm3 (0.0-0.1); Eosinophils Absolute Auto 0.3 K/mm3 (0-0.3); Eosinophils Percent Auto 3.7 % (0-4.4); Hematocrit 34.8 % (42.0-52.0); Hemoglobin 10.9 g/dL (14.0-18.0); Immature Granulocyte Absolute 0.34 K/mm3 (0.00-0.031); Immature Granulocyte Percent A 4.9 % (0-0.5); Lymphocytes Percent Auto 21.6 % (18.3-44.2); Mean Corpuscular HGB Conc 31.3 g/dl (32-36); Mean Corpuscular Hemoglobin 26.3 pg (26-34); Mean Corpuscular Volume 84.1 fl (80-100); Mean Platelet Volume 9.1 fl (7.4-10.4); Monocytes Absolute Auto 0.6 K/mm3 (0.1-0.6); Monocytes Percent Auto 8.5 % (2.6-8.5); Neutrophils Absolute Auto 4.2 K/mm3 (1.3-6.7); Neutrophils Percent Auto 60.3 % (45.5-73.1); Platelet Count Result 487 k/mm3 (150-375); Red Blood Count 4.14 M/mm3 (4.6-6.20); Red Cell Distribution Width 14.3 % (11.5-14.5)
[2023-03-22 06:49] LABS: Alanine Aminotransferase 16 U/L (6-50); Alkaline Phosphatase 85 U/L (38-126); Anion Gap 6 mmol/L (8-16); Aspartate Amino Transferase 22 U/L (17-59); Bilirubin,Total 0.4 mg/dL (0.2-1.3); Blood Urea Nitrogen 14 mg/dL (9-20); Calcium 8.7 mg/dL (8.4-10.2); Carbon Dioxide 27 mmol/L (22-30); Chloride 102 mmol/L (98-107); Estimated CRCL calculation 88 ml/min; Estimated Glomerular Filt Rate > 60; Glucose 117 mg/dL (65-110); Sodium 135 mmol/L (137-145)
[2023-03-22 07:23] LABS: Glucose Point of Care 118 mg/dl (65-105)
[2023-03-22] MEDS: INSULIN GLARGINE (*BKC) 100 UNITS/ML 40 UNITS SUB-Q (08:52)
[2023-03-22] MEDS: INSULIN ASPART (*BKC) 100 UNITS/ML 10 UNITS SUB-Q (08:54)
[2023-03-22] MEDS: LOSARTAN POTASSIUM 25 MG TABLET PO (08:57)
[2023-03-22] MEDS: buPROPion HCL SR (12 HR) 150 MG TAB PO (08:58)
[2023-03-22] MEDS: APIXABAN 5 MG TABLET 10 MG PO (08:58)
[2023-03-22] MEDS: ATORVASTATIN 10 MG TABLET PO (08:59)
[2023-03-22] MEDS: carvediloL 3.125 MG TABLET PO (08:59)
[2023-03-22] MEDS: PANTOPRAZOLE 40 MG TABLET PO (08:59)
[2023-03-22] MEDS: NYSTATIN 100,000 UNITS/ML SUSP 5 ML ORAL.SUSP PO ×3 (09:07→17:22)
--- NOTE | 2023-03-22 09:14 | PCNWS ---
Weekly nutritional screen. Patient is tolerating current diet with adequate intake. No weight loss reported. No nutritional needs at this time.
[2023-03-22] MEDS: oxyCODONE/ACETAMINOPHEN (*CRX) 10-325 MG TABLET 1 TAB PO ×2 (09:17→16:13)
[2023-03-22] MEDS: GABAPENTIN 300 MG CAPSULE PO (09:17)
[2023-03-22] MEDS: SPIRONOLACTONE 25 MG TABLET PO (09:17)
[2023-03-22 09:18] LABS: Glucose Point of Care 215 mg/dl (65-105)
[2023-03-22 11:59] LABS: Glucose Point of Care 174 mg/dl (65-105)
--- NOTE | 2023-03-22 14:50 | PM.IMPN ---
Progress Note: A&P Assessment and Plan (1) Bacteremia: Code(s): R78.81 - Bacteremia Status: Acute Assessment and Plan: 2/2 blood cultures positive for MRSA, continue vancomycin, repeat blood cultures ordered and NGTD Place PICC line, anticipate IV antibiotics for at least 14 days from negative cultures, will likely need SNF at discharge (2) Cellulitis: Qualifiers: Laterality: left Site of cellulitis: extremity Site of cellulitis of extremity: upper extremity Qualified Code(s): L03.114 - Cellulitis of left upper limb Code(s): L03.90 - Cellulitis, unspecified Status: Acute Assessment and Plan: Left upper extremity ultrasound ordered r/o abscess development. US shows some phlegmonous changes but no drainable abscess. Left upper arm Doppler shows left ulnar DVT, patient is already on Eliquis 5 mg BID for heart thrombus however, he was not taking this medication as prescribed. Will continue with Eliquis 10 mg PO BID through 03/23. Due to worsening pain and some tightness, CT left upper extremity ordered--abnormal, concerning for nec fasc, MRI ordered and pending Update: MRI showed diffuse and prominent subcutaneous edema suggestive of cellulitis as well as myositis, no concern for necrotizing fasciitis, no drainable abscess/phlegmon (3) Sepsis: Qualifiers: Sepsis acute organ dysfunction status: without acute organ dysfunction Sepsis type: sepsis due to unspecified organism Qualified Code(s): A41.9 - Sepsis, unspecified organism Code(s): A41.9 - Sepsis, unspecified organism Status: Acute Assessment and Plan: see above (4) Deep vein thrombosis of ulnar vein: Qualifiers: Chronicity: unspecified Laterality: left Qualified Code(s): I82.622 - Acute embolism and thrombosis of deep veins of left upper extremity Code(s): I82.629 - Acute embolism and thrombosis of deep veins of unspecified upper extremity Status: Acute Assessment and Plan: Doppler shows left ulnar vein thrombus Already supposed to be on Eliquis, but appeared to be noncompliant. 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 Hold 10 units of NovoLog. Continue with high dose SSI and hypoglycemia protocol DM diet Blood glucose has been ranging from 177-285 Consult DM educator Blood glucose reviewed 03/22 (8) Nonadherence to medical treatment: Code(s): Z91.199 - Patient's noncompliance with other medical treatment and regimen due to unspecified reason Status: Acute Assessment and Plan: History of AMA most recently at [place] this last week (9) Thrombus in heart chamber: Code(s): I51.3 - Intracardiac thrombosis, not elsewhere classified
[2023-03-22] MEDS: SULFAMETHOXAZOLE/TRIMETHOPRIM 800/160 MG DS TABLET 2 TAB PO (16:12)
--- NOTE | 2023-03-22 16:24 | PM.DS ---
DS: Admitting Diagnosis Discharge Date 03/22/23 Admitting Diagnosis arm pain DS: Discharge Diagnosis Discharge Diagnosis (1) Bacteremia: Code(s): R78.81 - Bacteremia Status: Acute Assessment and Plan: 2/2 blood cultures positive for MRSA, continue vancomycin, repeat blood cultures ordered and NGTD Discussed with ID pharmacist, d/c on bactrim to complete 14 days antibiotic coverage (2) Cellulitis: Qualifiers: Laterality: left Site of cellulitis: extremity Site of cellulitis of extremity: upper extremity Qualified Code(s): L03.114 - Cellulitis of left upper limb Code(s): L03.90 - Cellulitis, unspecified Status: Acute Assessment and Plan: Left upper extremity ultrasound ordered r/o abscess development. US shows some phlegmonous changes but no drainable abscess. Left upper arm Doppler shows left ulnar DVT, patient is already on Eliquis 5 mg BID for heart thrombus however, he was not taking this medication as prescribed. Will continue with Eliquis 10 mg PO BID through 03/23. Due to worsening pain and some tightness, CT left upper extremity ordered--abnormal, concerning for nec fasc, MRI ordered and pending Update: MRI showed diffuse and prominent subcutaneous edema suggestive of cellulitis as well as myositis, no concern for necrotizing fasciitis, no drainable abscess/phlegmon (3) Sepsis: Qualifiers: Sepsis acute organ dysfunction status: without acute organ dysfunction Sepsis type: sepsis due to unspecified organism Qualified Code(s): A41.9 - Sepsis, unspecified organism Code(s): A41.9 - Sepsis, unspecified organism Status: Acute Assessment and Plan: see above (4) Deep vein thrombosis of ulnar vein: Qualifiers: Chronicity: unspecified Laterality: left Qualified Code(s): I82.622 - Acute embolism and thrombosis of deep veins of left upper extremity Code(s): I82.629 - Acute embolism and thrombosis of deep veins of unspecified upper extremity Status: Acute Assessment and Plan: Doppler shows left ulnar vein thrombus Already supposed to be on Eliquis, but appeared to be noncompliant. 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 Hold 10 units of NovoLog. Continue with high dose SSI and hypoglycemia protocol DM diet Blood glucose has been ranging from 177-285 Consult DM educator Blood glucose reviewed 03/22 (8) Nonadherence to medical treatment: Code(s): Z91.199 - Patient's noncompliance with other medical treatment and regimen due to unspecified reason Status: Acute Assessment and Plan: History of AMA most recently at [facility] this last week (9) Thrombus in heart chamber: Code(s): I51.3 -
[2023-03-22 16:45] LABS: Glucose Point of Care 335 mg/dl (65-105)
[2023-03-22] MEDS: INSULIN ASPART (*BKC) 100 UNITS/ML SUB-Q (17:21)
== END 2023-03-22 18:30 | disposition home or self-care (01) | DRG 720 ==
LOC: ANHED 19:39 → ANH3MEDSUR 03-16 01:53
PROVIDERS: Emergency Medicine; Nurse Practitioner Acute Care; Student in an Organized Health Care Education/Training Program; Admitting Provider Internal Medicine; Emergency Provider Student in an Organized Health Care Education/Training Program; PCP Internal Medicine Infectious Disease; Visit Provider Student in an Organized Health Care Education/Training Program
DX: A41.9 Sepsis, unspecified organism (principal); I43 Cardiomyopathy in diseases classified elsewhere; E10.42 Type 1 diabetes mellitus with diabetic polyneuropathy; I82.622 Acute embolism and thrombosis of deep veins of left upper extremity; I50.22 Chronic systolic (congestive) heart failure; B95.62 Methicillin resistant Staphylococcus aureus infection as the cause of diseases classified elsewhere; E10.43 Type 1 diabetes mellitus with diabetic autonomic (poly)neuropathy; E10.65 Type 1 diabetes mellitus with hyperglycemia; E03.9 Hypothyroidism, unspecified; F15.10 Other stimulant abuse, uncomplicated; F41.9 Anxiety disorder, unspecified; G89.29 Other chronic pain; I11.0 Hypertensive heart disease with heart failure; K31.84 Gastroparesis; L03.114 Cellulitis of left upper limb; Z86.73 Personal history of transient ischemic attack (TIA), and cerebral infarction without residual deficits; Z79.4 Long term (current) use of insulin; Z91.199 Patient's noncompliance with other medical treatment and regimen due to unspecified reason; Z87.891 Personal history of nicotine dependence; Z86.14 Personal history of Methicillin resistant Staphylococcus aureus infection; Z86.718 Personal history of other venous thrombosis and embolism; Z79.01 Long term (current) use of anticoagulants
CPT/HCPCS: 36415; 71046; 71275; 72157; 73200; 73223; 76882; 80048; 80053; 80202; 80307; 81001; 82010; 82565; 82948; 83605; 83735; 84100; 84484; 85025; 85380; 85610; 85730; 87040; 87081; 87147; 87181; 87186; 93005; 93306; 93971; 96361; 96365; 96367; 96375; 99285; A9270; A9577; J1815; J2270; J3370; J7030; J7040; Q9967